=== PATIENT | female | born 1970 | race Caucasian/White ===

== ENCOUNTER → 2020-07-20 13:47 | Outpatient (BNVA) | payer OTHER, SELFPAY | PROVIDERS: PCP Counselor Addiction (Substance Use Disorder); Referring Provider Counselor Addiction (Substance Use Disorder); Visit Provider Internal Medicine | DX: R94.31 Abnormal electrocardiogram [ECG] [EKG] (principal); R06.02 Shortness of breath | CPT/HCPCS: 93005; 99202 ==

== ENCOUNTER → 2020-08-25 09:38 | Outpatient (REF) | payer OTHER, SELFPAY ==
--- NOTE | 2020-08-25 09:44 | CA_ITS ---
Transthoracic Echocardiogram Patient (Last, First, Middle): Ashlyn Power, Gender: Female Date of : 1970 Age: 50 Procedure Date: 08/25/2020 Procedure Type: Transthoracic Echocardiogram Location: OP Height: 157.48 cm Weight: 93.44 kg BSA: 1.94 m2 Heart Rate: bpm BP: 120 / 70 mmHg Director Compensation: Harrison MD: Erich Dueñas MD Symptoms: R06.02 - Shortness of breath Study Quality: Good ECG Rhythm: Sinus Conclusions: - The left ventricular systolic function is normal. The visually estimated ejection fraction is between 60-65%. - There is mild calcification of the aortic valve. - There is mild mitral annular calcification. Findings Procedure Information Contrast agent, definity, is being given per protocol without apparent complications. Left Ventricle Normal left ventricular cavity size. There is normal left ventricular wall thickness. The left ventricular systolic function is normal. The visually estimated ejection fraction is between 60-65%. There is no evidence of regional wall motion abnormalities. Diastolic function is normal for age. Right Ventricle Normal right ventricular cavity size and systolic function. Atria Both atria are normal in size. Aortic Valve There is a normal trileaflet aortic valve. There is mild calcification of the aortic valve. There is no aortic valve stenosis. There is no aortic valve regurgitation. Mitral Valve There is mild mitral annular calcification. There is trace mitral valve regurgitation. There is no mitral valve stenosis. Pulmonic Valve The pulmonic valve was not well visualized. Tricuspid Valve Normal tricuspid valve structure. There is trace tricuspid valve regurgitation. The pulmonary artery systolic pressure is normal. Great Vessels The aortic annulus, sinuses of valsalva, and asc aorta are normal in size. Venous The inferior vena cava is normal in size and collapses greater than 50% with inspiration. Pericardium/Pleural There is no evidence of pericardial effusion. Prior Study Comparison No prior study available for comparison. Measurements 2D Linear Measurements RVIDd: 2.82 RVIDd Index: 1.45 IVSd: 1.00 0.6-0.9/0.6-1.0 cm LVIDd: 5.05 3.9-5.3/4.2-5.9 cm LVIDd Index: 2.60 2.4-3.2/2.2-3.1 cm/m2 LVIDs: 3.51 2.0-3.6 cm LVPWd: 1.17 0.7-1.1 cm Ao Root: 2.90 2.1-3.5 cm LA Diam: 4.30 2.7-3.8/3.0-4.0 cm LAIDs Index: 2.22 1.5-2.3 cm/m2 LV Mass: 257.48 67-162/88-224 g LV Mass Index: 132.72 43-95/49-115 g/m2 LVOT Diam: 2.40 3.0+(-)1.3 cm 2D Systolic Function EF 4C: 58.10 >55% EF 2C: 65.80 >55% EF BiP: 63.60 >55% Mitral Valve MV Pk E: 0.89 MV PK A: 0.84 MV Decel Time: 195.00 E/A: 1.10 E'Lateral: 7.51 E'Medial: 5.87 E/E' Med: 15.20 E/E' Lat: 11.90 Aortic Valve AoV Pk Manuel: 1.32 AoV Mn Manuel: 0.94 AoV VTI: 0.26 AoV Pk Grad: 7.00 Aov Mn Grad: 4.00 SHILOH Cont.VTI: 2.37 LVOT LVOT Pk Manuel: 0.85 LVOT Mn Manuel: 0.50 LVOT VTI: 0.14 LVOT Pk Grad: 3.00 LVOT Mn Grad: 1.00 LVOT Diam: 2.40 LVOT Area: 4.52 Diastolic Function MV Pk E: 0.89 MV Pk A: 0.84 E/A: 1.10 E'Medial: 5.87 E/E' Med: 15.20 E' Laterial: 7.51 E/E' Lat: 11.90 Tricuspid Valve RA Press: 3.00 Great Vessels Aorta Ao Root-2D: 2.90 2.0-3.7 cm Ao Asc: 2.80 2.1-3.4 cm Ao Arch: 2.50 Updated in Other Vendor System with Status of Final Erich Dueñas MD electronically signed on 08/26/2020 1:29:39 PM with status of Final
== END ==
LOC: HO.CARD 09:38
PROVIDERS: Visit Provider Internal Medicine
DX: R06.02 Shortness of breath (principal)
CPT/HCPCS: 93306; Q9957

== ENCOUNTER → 2020-09-05 09:33 | Outpatient (REF) | payer OTHER, SELFPAY | LOC: HO.CARD 09:33 | PROVIDERS: PCP Internal Medicine; Visit Provider Internal Medicine | DX: Z13.89 Encounter for screening for other disorder (principal) ==

== ENCOUNTER 2020-09-05 10:12 | Inpatient (IN) | payer OTHER, SELFPAY ==
[2020-09-05] VITALS (12 sets, daily range): BP systolic 82–129; BP diastolic 32–71; PULSE 84–100; RESP 12–19; TEMP 36.5–37.1; O2SAT 94–97; BMI 35.2
--- NOTE | 2020-09-05 10:21 | XR_ITS ---
EXAMINATION: XR CHEST CLINICAL INFORMATION: Dyspnea COMPARISON: None TECHNIQUE: Portable upright AP view of the chest was obtained. FINDINGS: The lungs are clear. There is no airspace consolidation, vascular congestion, or definite groundglass opacity. The costophrenic sulci are clear. There is no pneumothorax or pleural reaction, or effusion. The heart is normal in size. The hilar and mediastinal contours and bony structures are unremarkable. XR/XR chest 1V IMPRESSION: Unremarkable examination.
--- NOTE | 2020-09-05 10:21 | ECG_ITS ---
Test Reason : HYPOTENSION Blood Pressure : / mmHG Vent. Rate : 092 BPM Atrial Rate : 092 BPM P-R Int : 182 ms QRS Dur : 102 ms QT Int : 408 ms P-R-T Axes : 020 008 010 degrees QTc Int : 504 ms Normal sinus rhythm Cannot rule out Inferior infarct , age undetermined Cannot rule out Anterior infarct , age undetermined Prolonged QT Abnormal ECG No previous ECGs available Referred By: Renetta Myers Electronically Signed By:MIESHA PRESLEY MD
--- NOTE | 2020-09-05 10:23 | ED.WEAKNESS ---
HPI - Weakness General Chief complaint: Weakness Stated complaint: HYPOTENSION Time Seen by Provider: 09/05/20 10:21 Source: patient Mode of arrival: wheelchair (from ETT lab) Limitations: no limitations History of Present Illness HPI Narrative: taking multiple psychiatric medications as well as furosemide - was going to have ETT today (reported surveillance) told staff she was lightheaded and felt confused and off for 1 week with some nasal congestion and cough/ mild dyspnea no chest pain found to have BP 70/40 had ECHO yesterday EF 60%, notes only new medication was risperidone so she stopped it. MD Complaint: generalized weakness and lack of energy Onset (ago): week(s) (1) Duration: constant Location: generalized Migration: none Severity: moderate Quality: dull Relieving factors: none Exacerbating factors: movement Context: new medication Associated symptoms: confusion and shortness of breath Related Data Home Medications Medication Instructions Recorded Confirmed aripiprazole 10 mg tablet 10 mg PO DAILY 07/20/20 07/20/20 aripiprazole 5 mg tablet 5 mg PO DAILY 07/20/20 07/20/20 buprenorphine 8 mg-naloxone 2 mg 20 mg SUBLINGUAL DAILY 07/20/20 07/20/20 sublingual film buspirone 15 mg tablet 7.5 mg PO TID tab 07/20/20 07/20/20 clonidine HCl 0.1 mg tablet 0.1 mg PO BEDTIME tab 07/20/20 07/20/20 clonidine HCl 0.2 mg tablet 0.2 mg PO BEDTIME 07/20/20 07/20/20 doxepin 50 mg capsule 50 mg PO BEDTIME 07/20/20 07/20/20 doxepin 75 mg capsule 75 mg PO DAILY cap 07/20/20 07/20/20 duloxetine 30 mg capsule,delayed 30 mg PO DAILY 07/20/20 07/20/20 release duloxetine 60 mg capsule,delayed mg PO 07/20/20 07/20/20 release fluticasone propionate 50 INTRANASAL 07/20/20 07/20/20 mcg/actuation nasal spray,suspension furosemide 20 mg tablet 20 mg PO BID tab 07/20/20 07/20/20 gabapentin 100 mg capsule 100 mg PO TID 07/20/20 07/20/20 gabapentin 400 mg capsule 400 mg PO TID 07/20/20 07/20/20 hydrochlorothiazide 50 mg tablet 25 mg PO DAILY tab 07/20/20 07/20/20 hydroxyzine HCl 50 mg tablet 50 mg PO TID tab 07/20/20 07/20/20 ibuprofen 600 mg tablet mg PO 07/20/20 07/20/20 magnesium oxide 250 mg PO DAILY 07/20/20 07/20/20 metformin 500 mg tablet 500 mg PO TID tab 07/20/20 07/20/20 polyethylene glycol 3350 17 g PO 07/20/20 07/20/20 gram/dose oral powder prazosin 2 mg capsule 2 mg PO DAILY cap 07/20/20 07/20/20 sennosides 8.6 mg-docusate sodium PO 07/20/20 07/20/20 50 mg tablet valsartan 40 mg tablet 40 mg PO BID tab 07/20/20 07/20/20 venlafaxine 100 mg tablet mg PO 07/20/20 07/20/20 Allergies Allergy/AdvReac Type Severity Reaction Status Date / Time Sulfa (Sulfonamide Allergy Unknown HIVES Verified 07/20/20 14:16 Antibiotics) metoclopramide [Reglan] AdvReac Unknown RESTLESS Verified 07/20/20 14:16 LEGS Review of Systems Review of Systems: Constitutional : No Weight loss, No Fever, No Chills, pos Fatigue, No Malaise ENT/Mouth : No sore throat, No Rhinorrhea, positive nasal congestion Eyes: No Eye Pain, No Swelling, No Redness Cardiovascular : No Chest Pain, pos SOB, No Dyspnea on Exertion, No Orthopnea, No Edema, No Palpitations Respiratory : pos Cough, No Sputum, No Wheezing Gastrointestinal : No Nausea, No Vomiting, No Diarrhea, No Constipation, No abdominal Pain, No Hematochezia, No Melena Genitourinary : No Dysuria, No Urinary Frequency, No Hematuria, Musculoskeletal : No joint pain, No Myalgias, No Joint Swelling Skin : No Skin Lesions, No rash Neuro : pos diffuse Weakness, No Numbness, pos Dizziness, No Headache Psych : No Anxiety/Panic, No Depression Heme/Lymph: No Bruising, No Bleeding,No Lymphadenopathy Endocrine : No Polyuria, No Polydipsia All other systems reviewed and are negative PMFSH Past Medical History Attestation statement: The following information was validated with the patient. Medical History (Updated 09/05/20 @ 16:20 by Renetta Myers DO) Bipolar disorder Essential hypertension QT prolongation Renal insufficiency Type 2 diabetes mellitus with unspecified complications Family History Family History (Updated 07/20/20 @ 14:18 by MONTY Castillo) Mother Angina pectoris Father S/P CABG x 3 Social History Social History (Updated 09/05/20 @ 10:42 by Renetta Myers DO) Smoking Status: Former smoker Use of substances other than those prescribed or required for medical reasons: No Advance Directives: No Advance Directives Information Provided: No Physical Exam Vital Signs: Vital Signs: Last Vital Signs Temp 97.9 F 09/05/20 10:19 Pulse 93 09/05/20 15:38 Resp 16 09/05/20 15:12 BP 115/61 09/05/20 15:38 Pulse Ox 97 09/05/20 15:12 Body Mass Index 35.2 Appearance: Alert. Oriented X3. No acute distress. Eyes: Pupils equal, round and reactive to light. ENT: Pharynx normal. nasal congestion Neck: Normal inspection. Neck supple. CVS: Normal heart rate and rhythm. Pulses normal. Respiratory: No respiratory distress. Breath sounds normal. Abdomen: Soft and non-tender. Skin: Skin warm and dry. Normal skin color. Normal skin turgor. Extremities: pos 2 to 3+ pitting lower extremity edema. No calf ttp Neuro: Oriented X 3. No motor deficit. No sensory deficit. Course Course Course Narrative: patient states she feels better but her BP remains low and she does appear somnolent will repeat fluid bolus EF 60% and give midodrine patient seems more sedate - wonder if this is med related will try low dose narcan 0.4mg to see if this improves her status zero response to narcan, repeat calls to [facility] and [facility] labs her hypotension seems related to dehydration vs medication at this time I do not suspect infection or severe sepsis attempts to call her PCP Dr. Carin Soto for her baseline labs [phone] pateint's Cr is 1.9 at baseline, planned admit at this time BUn 37 last serum test on 08/29/20 patient refuses sierra, no abdominal pain to suggest obstruction, patient admits to laying in bed due to not feeling well denies trauma, or significant physical exertion will continue fluids, has received 2.5L so far MDM - Weakness MDM Narrative Medical decision making narrative: 50 yo female with prolonged qtc, HTN, poor renal functio - here with one week of feeling confused and dizzy worse today at ETT test had BP 70/40 no new changes in medications other than risperidone which she stopped she is on multiple meds that can lead to hypotension, no GIB, no CP, mild shortness of breath, will need labs, gentle fluids, CXR, COVID swab, ddimer/troponin, dispo per results and findings, CT scan for dizziness though stroke seems unlikely Lab Data Result diagrams: 09/05/20 10:46 09/05/20 10:46 Labs: Lab Results 09/05/20 09/05/20 09/05/20 Range/Units 10:46 10:46 10:46 WBC 6.7 (4.8-10.8) X10*3/uL RBC 3.18 L (4.20-5.50) X10*6/uL Hgb 9.0 L (12.0-16.0) g/dl Hct 28.3 L (37-47) % MCV 89.0 (80-98) fL MCH 28.3 (27.0-33.0) pg MCHC 31.8 (31.0-35.0) g/dl RDW 13.2 (11.0-16.0) % Plt Count 358 (160-400) X10*3/uL MPV 9.2 L (9.4-12.3) fL Immature Gran % (Auto) 0.3 (0.0-0.4) % Neut % (Auto) 68.3 (45-73) % Lymph % (Auto) 20.0 (20-40) % [place] % (Auto) 8.0 (2-11) % Eos % (Auto) 2.6 (0-4) % Baso % (Auto) 0.8 (0-2) % Lymph # (Auto) 1.3 (1.2-4.9) X10*3/uL [place] # (Auto) 0.5 (0.1-1.2) X10*3/uL Eos # (Auto) 0.2 (0.0-0.4) X10*3/uL Baso # (Auto) 0.1 (0.0-0.2) X10*3/uL Abs Immat Gran (auto) 0.02 (0.00-0.03) X10*3/uL Absolute Neuts (auto) 4.6 (2.0-8.3) X10*3/uL Absolute Nucleated RBC 0.000 (0.0-0.012) X10*3/uL Nucleated RBC % (auto) 0.0 (0.0-0.2) /100WBC PT 10.1 L (10.8-13.0) SEC INR 0.9 (0.9-1.1) APTT 28.2 (24.1-38.0) SEC D-Dimer 671 NG/ML VBG pH (7.32-7.43) VBG pCO2 mmhg VBG pO2 mmhg VBG HCO3 mmol/L VBG O2 Saturation % VBG Base Excess mmol/L Sodium 133 L (135-145) mmol/L Potassium 3.8 (3.3-5.1) mmol/l Chloride 89 L (96-108) mmol/L Carbon Dioxide 30 H (22-29) mmol/L Anion Gap 18 (12-20) BUN 77 H (9-16) mg/dL Creatinine 3.26 H (0.5-1.4) mg/dL Estim Creat Clear Calc 22.2 Estimated GFR 15 Random Glucose 130 H (60-115) mg/dL Lactic Acid (0.5-2.0) mmol/L Calcium 9.0 (8.4-10.2) mg/dL Magnesium 1.8 (1.6-2.6) mg/dL Total Bilirubin 0.2 (0.0-1.0) mg/dL Direct Bilirubin < 0.2 (0.0-0.5) mg/dL AST 83 H (5-31) U/L ALT 42 H (0-31) U/L Alkaline Phosphatase 81 (39-117) U/L Ammonia (13-55) umol/L Total Creatine Kinase 4209 H (26-140) U/L Troponin I High Sens (<3.5-17.0) ng/L B-Natriuretic Peptide (<100) pg/mL Total Protein 6.6 (6.5-8.0) g/dL Albumin 3.9 (3.5-5.0) g/dL Lipase 9 (8-78) U/L Coronavirus (PCR) (Negative) Influenza Type A (PCR) (Negative) Influenza Type B (PCR) (Negative) RSV RNA Qual (PCR) (Negative) 09/05/20 09/05/20 09/05/20 Range/Units 10:46 10:46 15:03 WBC (4.8-10.8) X10*3/uL RBC (4.20-5.50) X10*6/uL Hgb (12.0-16.0) g/dl Hct (37-47) % MCV (80-98) fL MCH (27.0-33.0) pg MCHC (31.0-35.0) g/dl RDW (11.0-16.0) % Plt Count (160-400) X10*3/uL MPV (9.4-12.3) fL Immature Gran % (Auto) (0.0-0.4) % Neut % (Auto) (45-73) % Lymph % (Auto) (20-40) % [place] % (Auto) (2-11) % Eos % (Auto) (0-4) % Baso % (Auto) (0-2) % Lymph # (Auto) (1.2-4.9) X10*3/uL [place] # (Auto) (0.1-1.2) X10*3/uL Eos # (Auto) (0.0-0.4) X10*3/uL Baso # (Auto) (0.0-0.2) X10*3/uL Abs Immat Gran (auto) (0.00-0.03) X10*3/uL Absolute Neuts (auto) (2.0-8.3) X10*3/uL Absolute Nucleated RBC (0.0-0.012) X10*3/uL Nucleated RBC % (auto) (0.0-0.2) /100WBC PT (10.8-13.0) SEC INR (0.9-1.1) APTT (24.1-38.0) SEC D-Dimer NG/ML VBG pH (7.32-7.43) VBG pCO2 mmhg VBG pO2 mmhg VBG HCO3 mmol/L VBG O2 Saturation % VBG Base Excess mmol/L Sodium (135-145) mmol/L Potassium (3.3-5.1) mmol/l Chloride (96-108) mmol/L Carbon Dioxide (22-29) mmol/L Anion Gap (12-20) BUN (9-16) mg/dL Creatinine (0.5-1.4) mg/dL Estim Creat Clear Calc Estimated GFR Random Glucose (60-115) mg/dL Lactic Acid 1.9 (0.5-2.0) mmol/L Calcium (8.4-10.2) mg/dL Magnesium (1.6-2.6) mg/dL Total Bilirubin (0.0-1.0) mg/dL Direct Bilirubin (0.0-0.5) mg/dL AST (5-31) U/L ALT (0-31) U/L Alkaline Phosphatase (39-117) U/L Ammonia 31 (13-55) umol/L Total Creatine Kinase (26-140) U/L Troponin I High Sens 6.4 (<3.5-17.0) ng/L B-Natriuretic Peptide < 10 (<100) pg/mL Total Protein (6.5-8.0) g/dL Albumin (3.5-5.0) g/dL Lipase (8-78) U/L Coronavirus (PCR) (Negative) Influenza Type A (PCR) (Negative) Influenza Type B (PCR) (Negative) RSV RNA Qual (PCR) (Negative) 09/05/20 09/05/20 Range/Units 15:04 16:14 WBC (4.8-10.8) X10*3/uL RBC (4.20-5.50) X10*6/uL Hgb (12.0-16.0) g/dl Hct (37-47) % MCV (80-98) fL MCH (27.0-33.0) pg MCHC (31.0-35.0) g/dl RDW (11.0-16.0) % Plt Count (160-400) X10*3/uL MPV (9.4-12.3) fL Immature Gran % (Auto) (0.0-0.4) % Neut % (Auto) (45-73) % Lymph % (Auto) (20-40) % [place] % (Auto) (2-11) % Eos % (Auto) (0-4) % Baso % (Auto) (0-2) % Lymph # (Auto) (1.2-4.9) X10*3/uL [place] # (Auto) (0.1-1.2) X10*3/uL Eos # (Auto) (0.0-0.4) X10*3/uL Baso # (Auto) (0.0-0.2) X10*3/uL Abs Immat Gran (auto) (0.00-0.03) X10*3/uL Absolute Neuts (auto) (2.0-8.3) X10*3/uL Absolute Nucleated RBC (0.0-0.012) X10*3/uL Nucleated RBC % (auto) (0.0-0.2) /100WBC PT (10.8-13.0) SEC INR (0.9-1.1) APTT (24.1-38.0) SEC D-Dimer NG/ML VBG pH 7.36 (7.32-7.43) VBG pCO2 56 mmhg VBG pO2 32 mmhg VBG HCO3 31 mmol/L VBG O2 Saturation 50.1 % VBG Base Excess 4.4 mmol/L Sodium (135-145) mmol/L Potassium (3.3-5.1) mmol/l Chloride (96-108) mmol/L Carbon Dioxide (22-29) mmol/L Anion Gap (12-20) BUN (9-16) mg/dL Creatinine (0.5-1.4) mg/dL Estim Creat Clear Calc Estimated GFR Random Glucose (60-115) mg/dL Lactic Acid (0.5-2.0) mmol/L Calcium (8.4-10.2) mg/dL Magnesium (1.6-2.6) mg/dL Total Bilirubin (0.0-1.0) mg/dL Direct Bilirubin (0.0-0.5) mg/dL AST (5-31) U/L ALT (0-31) U/L Alkaline Phosphatase (39-117) U/L Ammonia (13-55) umol/L Total Creatine Kinase (26-140) U/L Troponin I High Sens (<3.5-17.0) ng/L B-Natriuretic Peptide (<100) pg/mL Total Protein (6.5-8.0) g/dL Albumin (3.5-5.0) g/dL Lipase (8-78) U/L Coronavirus (PCR) NEGATIVE (Negative) Influenza Type A (PCR) NEGATIVE (Negative) Influenza Type B (PCR) NEGATIVE (Negative) RSV RNA Qual (PCR) NEGATIVE (Negative) ECG Data Attestation: I personally reviewed and interpreted this ECG as follows: ECG interpretation date: 09/05/20 ECG interpretation time: 10:37 Interpretation: Rate: 92 Rhythm: NSR [place]: normal Normal P waves. Normal ERICA. Normal QRS complex. poor R wave progression ST T wave : nonspecific no LEONARDO qTC: prolonged prior studies: no acute ischemia The study has been interpreted contemporaneously by me. . Critical Care Time Critical Care Time Critical Care Time: Yes Total Critical Care Time: 60 Attestation: 2.5L NS, labs, EKG, admission I attest to this time spent taking care of the patient Discharge Plan Discharge Clinical Impression: Renal failure Qualifiers: Renal failure chronicity: acute on chronic Acute renal failure type: unspecified Chronic kidney disease stage: unspecified stage Qualified Code(s): N17.9 - Acute kidney failure, unspecified Hypotension Qualifiers: Hypotension type: hypotension due to drug Qualified Code(s): I95.2 - Hypotension due to drugs Rhabdomyolysis Qualifiers: Rhabdomyolysis type: non-traumatic Qualified Code(s): M62.82 - Rhabdomyolysis Patient Disposition: Admitted As Inpatient
--- NOTE | 2020-09-05 10:36 | CT_ITS ---
CT HEAD WITHOUT CONTRAST CLINICAL INFORMATION: Dizziness and confusion for one week. COMPARISON: None available. TECHNIQUE: Contiguous axial imaging was performed from the skull base to vertex without intravenous administration of contrast. This CT examination was performed using dose optimization techniques as appropriate, variously including the following: *Automated exposure control *Adjustment of mA and/or kV according to patient size (this includes techniques or standardized protocols for targeted exams where dose is matched to indication/reason for exam; i.e. extremities or head) *Use of iterative reconstruction technique FINDINGS: There is no intracranial hemorrhage, hydrocephalus, extra-axial surface collection, midline shift, or other herniation pattern. Danielle to white matter differentiation is diffusely maintained without evidence of an evolved acute territorial infarct. The basilar cisterns are preserved. No significant soft tissue abnormality. No acute osseous abnormality. There is mild mucosal thickening within the right sphenoid sinus. Remaining paranasal sinuses and the mastoid air cells are clear. CT/CT head/brain wo con IMPRESSION: No acute intracranial abnormality.
[2020-09-05] MEDS: 0.9 % Sodium Chloride 500 ML IV (10:51)
[2020-09-05 10:52] LABS: Basophils Absolute Auto 0.1 X10*3/uL (0.0-0.2); Basophils Percent Auto 0.8 % (0-2); Eosinophils Absolute Auto 0.2 X10*3/uL (0.0-0.4); Eosinophils Percent Auto 2.6 % (0-4); Hematocrit 28.3 % (37-47); Imm Gran Abs Auto 0.02 X10*3/uL (0.00-0.03); Imm Gran Pct Auto 0.3 % (0.0-0.4); Lymphocytes Absolute Auto 1.3 X10*3/uL (1.2-4.9); MANUAL DIFF FLAG NO; Mean Corpuscular HGB Conc 31.8 g/dl (31.0-35.0); Mean Corpuscular Hemoglobin 28.3 pg (27.0-33.0); Mean Platelet Volume 9.2 fL (9.4-12.3); Monocytes Absolute Auto 0.5 X10*3/uL (0.1-1.2); Neutrophils Absolute Auto 4.6 X10*3/uL (2.0-8.3); Neutrophils Percent Auto 68.3 % (45-73); Platelet Count 358 X10*3/uL (160-400); Red Blood Count 3.18 X10*6/uL (4.20-5.50); Red Cell Distribution Width 13.2 % (11.0-16.0); White Blood Count 6.7 X10*3/uL (4.8-10.8)
[2020-09-05 11:00] LABS: INTERNATIONAL NORM RATIO 0.9 (0.9-1.1); Prothrombin Time 10.1 SEC (10.8-13.0)
[2020-09-05 11:03] LABS: D Dimer 671 NG/ML; Partial Thromboplastin Time 28.2 SEC (24.1-38.0)
[2020-09-05 11:23] LABS: Lactic Acid 1.9 mmol/L (0.5-2.0)
[2020-09-05 11:33] LABS: Alanine Aminotransferase 42 U/L (0-31); Albumin Level 3.9 g/dL (3.5-5.0); Alkaline Phosphatase 81 U/L (39-117); Anion Gap 18 (12-20); Aspartate Amino Transferase 83 U/L (5-31); Bilirubin Direct < 0.2 mg/dL (0.0-0.5); Bilirubin Total 0.2 mg/dL (0.0-1.0); Blood Urea Nitrogen 77 mg/dL (9-16); Carbon Dioxide 30 mmol/L (22-29); Chloride 89 mmol/L (96-108); Creatinine Clr Calc Pharmacy 22.2; Estimated Glomerular Filt Rate 15; Glucose Random 130 mg/dL (60-115); Lipase 9 U/L (8-78); Magnesium 1.8 mg/dL (1.6-2.6); Potassium 3.8 mmol/l (3.3-5.1); Sodium 133 mmol/L (135-145); Total Protein 6.6 g/dL (6.5-8.0)
[2020-09-05 11:34] LABS: B Type Natriuretic Peptide < 10 pg/mL (<100); Troponin-I High Sensitivity 6.4 ng/L (<3.5-17.0)
--- NOTE | 2020-09-05 12:07 | NM_ITS ---
EXAMINATION: PULMONARY PERFUSION STUDY CLINICAL INFORMATION: Shortness of breath, elevated d-dimer COMPARISON: No previous lung scan is available for comparison. A radiograph the chest dated 09/05/2020 is available for comparison. TECHNIQUE: Following the intravenous injection of 4.0 mCi Tc-99m MAA, an 8-view perfusion study was performed using a gamma scintillation camera. FINDINGS: No segmental perfusion defects are present. There is homogeneous distribution of activity bilaterally. There are no focal anatomic appearing perfusion defects present. NM/NM pul perfusion IMPRESSION: Normal radionuclide lung perfusion scan.
[2020-09-05] MEDS: 0.9 % Sodium Chloride 1,000 ML 999 ML IVCONT ×2 (13:57→15:13)
[2020-09-05] MEDS: Midodrine HCl 5 MG TABLET PO (13:57)
[2020-09-05] MEDS: Naloxone HCl 0.4 MG/ML VIAL IVPUSH (14:12)
--- NOTE | 2020-09-05 15:16 | PC.NURSE ---
medicated further per emar, asking for something to eat, provider agreeable. given sandwich.
[2020-09-05 15:26] LABS: Ammonia 31 umol/L (13-55)
--- NOTE | 2020-09-05 15:38 | PC.NURSE ---
did not eat much of sandwich, pt taken to nuc med.
[2020-09-05 15:52] LABS: Influenza A PCR NEGATIVE (Negative); Influenza B PCR NEGATIVE (Negative); Resp Syncy Virus RNA Qual PCR NEGATIVE (Negative); SARS COV2 PCR INHOUSE NEGATIVE (Negative)
[2020-09-05 16:24] LABS: Base Excess VBG 4.4 mmol/L; HCO3 VBG 31 mmol/L; PCO2 VBG 56 mmhg; PO2 VBG 32 mmhg; pH VBG 7.36 (7.32-7.43)
[2020-09-05 16:25] LABS: Blood Gas Serial # 5414; Oxygen Saturation VBG 50.1 %
[2020-09-05 17:06] LABS: Glucose Urine UA NEG (NEG); Leukocyte Esterase Urine 2+ (NEG); Nitrite Urine NEG (NEG); Urine Blood TRACE (NEG); Urine Ketones NEG (NEG); Urine Protein NEG (NEG-TRACE)
[2020-09-05 17:08] LABS: Appearance Urine CLEAR; Color Urine YELLOW
[2020-09-05 17:17] LABS: Bacteria Urine 1+ /LPF; RBC Urine 0-2 /HPF (0); Squamous Epithelial Cell Urine 2+ /LPF
[2020-09-05 17:31] LABS: Amphetamine Screen Urine Not Detected (Not Detect); Barbiturates, Urine Not Detected (Not Detect); Benzodiazepines Screen Urine Not Detected (Not Detect); Cannabinoid Screen Urine Not Detected (Not Detect); Cocaine Screen Urine Not Detected (Not Detect); Opiate Screen Urine Not Detected (Not Detect); Phencyclidine Screen Urine Not Detected (Not Detect)
--- NOTE | 2020-09-05 17:31 | PC.NURSE ---
pt continues to be intermittenly resting in stretcher, easily alert to verbal stimuli. awaiting hospitalist consultation.
--- NOTE | 2020-09-05 19:33 | PM.EVENT ---
Event Note Date of Service: 09/06/20 Event Note: Patient is a poor historian as per the patient patient was recently was in cardiology office for QTC prolongation where she was adjusted to get her medication adjusted psych hopper. She says that from last 1-2 weeks year her pop appetite was declining as well as she was having some worsening kidney function from last 2 months as per her brother she went to her doctor and was referred for nephrology which she was supposed to go on 15 of September but before that she was becoming more lead more drowsy and weak, less mobile , mostly lying in the bed. and that is why came to the hospital In the hospital patient was found creatinine of 2.23 a in comparison to September where her creatinine was 1.34 Also was found to have CPK of 4000 QTC during this admission T504 range Patient denies any chest pain or shortness of breath or abdominal pain or any nausea or vomiting or diarrhea other only complaint patient endorsed is sometimes she has difficulty urinating but could not able to elaborate it denies any other urinary complaint including burning or pain or any fever Physical exam: Cvs: rrr, [id number] , no murmur res: clear to auscultation ,no rhonchii or wheezing abd: no rebound or guarding ,nt, bs present. ext pulses present , no cyanosis neuro: axo3 , nonfocal. Assessment and plan: DONI/rhabdo: Probably related to above dehydration and immobility: No fever or any rigidity or any abdominal pain UA abnormal-will add ceftriaxone Nephrology evaluation in the morning Hold diuretics and nephrotoxic medications She is on multiple psych medications not yet reconciled-ED was called again to reconcile the medications, then we will plan to continue accordingly because there multiple medications . U tox and renal ultrasound with bladder since patient has DONI.
--- NOTE | 2020-09-05 20:02 | PC.NURSE ---
Pt refused/declined catheter, explained reasoning, pt expressed understanding, continues to decline.
[2020-09-05 21:52] LABS: Glucose, Whole Blood 89 mg/dL (60-115)
[2020-09-05] MEDS: 0.9 % Sodium Chloride 1,000 ML 100 ML IVCONT (22:15)
[2020-09-05] MEDS: 0.9 % Sodium Chloride Flush 3 ML SYRINGE IVFLUSH (22:16)
[2020-09-05] MEDS: cefTRIAXone sodium 1 GM in 0.9 % Sodium Chloride 50 ML IV (22:16)
[2020-09-06 04:00] VITALS: BP 102/57; PULSE 80; RESP 18; TEMP 37; O2SAT 92
--- NOTE | 2020-09-06 06:00 | ECG_ITS ---
Test Reason : CHECK QTC Blood Pressure : / mmHG Vent. Rate : 088 BPM Atrial Rate : 088 BPM P-R Int : 200 ms QRS Dur : 104 ms QT Int : 418 ms P-R-T Axes : 031 015 025 degrees QTc Int : 505 ms Normal sinus rhythm Cannot rule out Anterior infarct (cited on or before 05-SEP-2020) Prolonged QT Abnormal ECG When compared with ECG of 05-SEP-2020 10:31, No significant change was found Referred By: Anila Duncan Electronically Signed By:MIESHA PRESLEY MD
[2020-09-06 06:54] LABS: Hematocrit 27.1 % (37-47); Hemoglobin 8.4 g/dl (12.0-16.0); Mean Corpuscular Hemoglobin 28.3 pg (27.0-33.0); Mean Corpuscular Volume 91.2 fL (80-98); Mean Platelet Volume 9.5 fL (9.4-12.3); Platelet Count 331 X10*3/uL (160-400); Red Blood Count 2.97 X10*6/uL (4.20-5.50); Red Cell Distribution Width 13.3 % (11.0-16.0); White Blood Count 5.2 X10*3/uL (4.8-10.8)
[2020-09-06 07:14] LABS: Anion Gap 12 (12-20); Blood Urea Nitrogen 56 mg/dL (9-16); Carbon Dioxide 30 mmol/L (22-29); Chloride 102 mmol/L (96-108); Creatinine Clr Calc Pharmacy 41.7; Estimated Glomerular Filt Rate 31; Glucose Random 108 mg/dL (60-115); Potassium 3.5 mmol/l (3.3-5.1); Sodium 140 mmol/L (135-145)
[2020-09-06] MEDS: 0.9 % Sodium Chloride 1,000 ML 100 ML IVCONT ×2 (07:47→17:53)
[2020-09-06] MEDS: Acetaminophen 325 MG TABLET 650 MG PO (07:53)
[2020-09-06 08:00] VITALS: BP 119/73; PULSE 98; RESP 18; TEMP 37.1; O2SAT 93
[2020-09-06 08:18] LABS: Glucose, Whole Blood 132 mg/dL (60-115)
--- NOTE | 2020-09-06 09:18 | P.PNIM_ITS ---
Subjective Subjective Date of Service: 09/08/20 Interval History: doni, rhabdo Review of Systems Seems like improving, denies any chest pain or shortness of breath or abdominal pain or fever chills Physical Exam Vital Signs: Vital Signs: Last Vital Signs Temp 98.7 F 09/06/20 08:00 Pulse 98 09/06/20 08:00 Resp 18 09/06/20 08:00 BP 119/73 09/06/20 08:00 Pulse Ox 93 09/06/20 08:00 Body Mass Index 35.2 Physical exam: Cvs: rrr, [id number] , no murmur res: clear to auscultation ,no rhonchii or wheezing abd: no rebound or guarding ,nt, bs present. ext pulses present , no cyanosis neuro: axo3 , nonfocal. Objective Data Current Medications Generic Name Dose Route Start Last Admin Trade Name Freq PRN Reason Stop Dose Admin Acetaminophen 650 mg 09/05/20 21:22 09/06/20 07:53 Acetaminophen 325 Mg Tablet PO 650 mg Q6H PRN Administration Pain, Mild (Pain Scale 1-3) Ceftriaxone Sodium 1 gm/ 50 mls @ 100 mls/hr 09/05/20 22:00 09/05/20 23:07 Sodium Chloride IV Infused Q24H SIN Infusion Sodium Chloride 1,000 mls @ 100 mls/hr 09/05/20 21:22 09/06/20 07:47 Ns IVCONT 100 mls/hr .Q10H SIN Administration Insulin Human Lispro 0 unit 09/05/20 21:22 09/06/20 07:49 Insulin Lispro 100 Unit/Ml 3 Ml Vial SUBCUT Not Given QIDACHS [facility] Protocol Ondansetron HCl 4 mg 09/05/20 21:22 Ondansetron Hcl 4 Mg/2 Ml Vial IVPUSH Q8H PRN Nausea and Vomiting Pharmacy Consult 1 each 09/05/20 19:40 Consult Rx Perform Med Rec MISCELLANE ONCE PRN Consult order Pharmacy Consult 1 each 09/05/20 21:22 Consult Rx Perform Med Rec MISCELLANE ONCE PRN Consult order Sodium Chloride 3 ml 09/06/20 00:00 09/06/20 07:50 0.9 % Sodium Chloride Flush 3 Ml Syringe [facility]USH [facility] CBC & Chem 7: 09/06/20 05:28 09/07/20 05:43 Assessment and Plan (1) Renal failure: Status: Acute Assessment and Plan: 50-year-old woman who is being admitted with acute kidney injury and chronic kidney disease, rhabdomyolysis, urinary tract infection and some hypotension. She has a history of prolonged QT and more recently her psych medications have been adjusted. Some of her symptoms may be from this. She has had declining appetite and more of a sleepy affect. It also appears that she has had worsening renal function over the last several months and she was referred to see a solar resource assessor. 1. Acute kidney injury on chronic kidney disease, multifactorial likely related to dehydration, hypotension, rhabdomyolysis, and urinary tract infection. We will continue IV fluids, Nephrology to follow. Hold any nephrotoxic agents. 2. Rhabdomyolysis. Likely from increased immobility due to lethargy. Continue IV fluids, follow CK-MB, follow total CpK. Seen by Nephro-DONI was thought to be related to probably hypoperfusion dehydration. 4. Prolonged QTc. : Seen by psych Abilify adjusted 10 mg daily Also doxepin adjusted as per psych Will continue to monitor 5. Urinary tract infection. Rocephin, follow urine cultures. 6. Diabetes mellitus. Sliding scale, ADA diet. 7. Deep vein thrombosis prophylaxis with heparin.
[2020-09-06 10:58] LABS: Iron 47 mcg/dL (30-160); Percent Iron Saturation 19 % (15-50); Total Iron Binding Capacity 244 mcg/dL (228-428); Unsaturated Iron Binding 197 ug/dL
[2020-09-06 11:18] LABS: Ferritin 122 ng/mL (10-250)
[2020-09-06 11:18] LABS: Glucose, Whole Blood 167 mg/dL (60-115)
[2020-09-06 11:33] VITALS: BP 117/56; PULSE 86; RESP 18; TEMP 36.8; O2SAT 95
[2020-09-06 11:48] LABS: Folate 9.2 ng/mL (> or = 4.0); Vitamin B12 256 pg/mL (200-900)
--- NOTE | 2020-09-06 12:06 | HP_ITS ---
DATE OF SERVICE: 09/05/2020 Primary care provider is not listed. CHIEF COMPLAINT: Lethargy. HISTORY OF PRESENT ILLNESS: A 50-year-old woman presenting from a [place] [facility] with lightheadedness, confusion, and lethargy. She was also noted to have low blood pressures. She had an echocardiogram yesterday, which showed an EF of 60%. She was scheduled to have an exercise stress test today, but she was unable to. She was having this cardiac workup due to an increased QTc, unlikely related to her multiple psychiatric medications. She recently had these medications decreased due to this, and since then, she reports that she has had more lethargy and has been not as active. She also reported a poor appetite and feeling more tired as of lately. She also reported that she has been having some workup regarding her kidneys, which have been worsening over some months now. She seems quite vague, answering some questions and frustrated at times as well saying that she was finding it hard to remember certain things. She denied fever, chills, nausea, vomiting, diarrhea, or chest pain. In the ER, her CK was noted to be elevated at 4209, AST 83, ALT 42, ammonia 31, troponin 6.4, creatinine 3.26, sodium 133. She also had normal blood gas. Urinalysis showed 2+ leukocyte esterase and 1+ bacteria. Urine opiates not detected, negative coronavirus. She was noted to be quite hypotensive with lowest reading of 83/44. She did receive a dose of midodrine while in the ER with 2.5 L of IV fluids. She was awake and alert during the interview. She will be admitted for further management and treatment of DONI, rhabdomyolysis, and hypotension. PAST MEDICAL HISTORY: 1. Probable chronic renal failure. 2. History of substance abuse including pain medication, currently on Suboxone. 3. Hypertension. 4. Bipolar disorder. 5. Diabetes mellitus. FAMILY HISTORY: Father had CABG x3 and NV. SOCIAL HISTORY: Patient denies any alcohol, tobacco, illicit drug use. Says that she has been sober over the last 2 years, currently lives in a sober living house. ALLERGIES: ALLERGIES TO SULFA AND REGLAN. MEDICATIONS: Medication reconciliation is pending. However, her medication list shows: 1. Albuterol inhaler 2 puffs q.6 hours as needed for wheezing. 2. Amlodipine besylate 5 mg p.o. daily. 3. Aripiprazole 10 mg. 4. Atorvastatin 20 mg at bedtime. 5. Benztropine 1 mg daily. 6. Bupropion 300 mg and 150 mg. 7. Buspirone 15 mg. 8. Buspirone 5 mg. 9. Buspirone 7.5 mg. 10. Clonidine 0.1 mg. 11. Doxepin unknown dose. REVIEW OF SYSTEMS: CONSTITUTIONAL: Denies recent fever, chills, or decrease in appetite. RESPIRATORY: Denies any shortness of breath, cough, or sputum production. CARDIOVASCULAR: Denies any chest pain, orthopnea, PND, edema. GASTROINTESTINAL: Denies any dysphagia, abdominal pain, nausea, vomiting, or diarrhea. GENITOURINARY: Denies any dysuria, frequency, or hematuria. MUSCULOSKELETAL: Denies any joint pain or swelling. NEUROPSYCH: Denies any weakness, seizures. All other systems are reviewed and are negative. PHYSICAL EXAMINATION: CONSTITUTIONAL: Resting in bed. No acute distress. VITAL SIGNS: Heart rate 92, blood pressure 93/51, oxygen saturation 97% on room air. SKIN: Intact without rash or open sores. HEENT: Head is normocephalic, atraumatic. Eyes, pupils are PERRLA. Sclerae anicteric. Mucous membranes are intact and moist. NECK: Supple. No lymphadenopathy. No JVD noted. CHEST: Clear to auscultation without wheezes, rhonchi, or rales. HEART: Regular rate and rhythm. Clear S1, S2. No murmurs, rubs, gallops. ABDOMEN: Positive bowel sounds. Soft, nontender. No hepatomegaly or splenomegaly noted. NEURO: The patient is alert and oriented x3. Cranial nerves II through XII grossly intact without focal deficits. LABORATORY DATA: WBC 6.7, hemoglobin 9.0, hematocrit 28.3, and platelets 358. Sodium is 133, potassium 3.8, chloride is 89, BUN is 77, creatinine is 3.26. CPK is 4209. Urinalysis likely positive for infection. VQ scan showed normal, no probability of PE. Head CT was also obtained, which was negative for any acute intracranial abnormality. Chest x-ray was negative for any consolidation or effusion. ASSESSMENT AND PLAN: A 50-year-old woman who is being admitted with acute kidney injury and chronic kidney disease, rhabdomyolysis, urinary tract infection and some hypotension. She has a history of prolonged QT and more recently her psych medications have been adjusted. Some of her symptoms may be from this. She has had declining appetite and more of a sleepy affect. It also appears that she has had worsening renal function over the last several months and she was referred to see a emergency room tech. 1. Acute kidney injury on chronic kidney disease, multifactorial likely related to dehydration, hypotension, rhabdomyolysis, and urinary tract infection. We will continue IV fluids, Nephrology to follow. Hold any nephrotoxic agents. 2. Rhabdomyolysis. Likely from increased immobility due to lethargy. Continue IV fluids, follow CK-MB, follow total CK. 3. Hypotension. She did receive some IV fluids in the ER. We will hold any antihypertensive medications. Continue IV fluids, may be contributing to some of her acute kidney due to hypoperfusion. Nephrology to follow. 4. Prolonged QTc. Seems likely related to her psych medication. We will consult Psych for assistance with her medications. 5. Urinary tract infection. Rocephin, follow urine cultures. 6. Diabetes mellitus. Sliding scale, ADA diet. 7. Deep vein thrombosis prophylaxis with heparin. 8. Case discussed with Dr. Streeter. 9. Full code. KATT Panchal MD JR/KRYSTLE / [id number] MTDD
--- NOTE | 2020-09-06 12:08 | MHC.CM.PN ---
CM met with patient at the bedside who reports she is independent and lives alone. Patient states her father Elvin is HCP [phone], copy requested. Discussed discharge plan, home no services. Brother will provide transport. CM will continue to follow patient for discharge needs.
[2020-09-06] MEDS: Gabapentin 100 MG CAPSULE PO ×2 (14:24→22:09)
[2020-09-06] MEDS: busPIRone HCl 5 MG TABLET 2.5 MG PO ×2 (14:24→22:08)
[2020-09-06] MEDS: Buprenorphine/Naloxone 8/2 mg FILM 2 FILM SUBLINGUAL (14:24)
[2020-09-06 15:05] VITALS: BMI 35.2
--- NOTE | 2020-09-06 15:52 | PM.PNNEP ---
Subjective Subjective Date of Service: 09/06/20 Interval history: Patient seen and examined consult dictated Physical Exam Vital Signs: Vital Signs: Last Vital Signs Temp 98.3 F 09/06/20 11:33 Pulse 86 09/06/20 11:33 Resp 18 09/06/20 11:33 BP 117/56 L 09/06/20 11:33 Pulse Ox 95 09/06/20 11:33 Body Mass Index 35.2 Objective Data Labs CBC & Chem 7: 09/06/20 05:28 09/06/20 05:28 Labs: Laboratory Results - last 24 hr 09/05/20 09/05/20 09/05/20 10:46 15:04 16:14 WBC RBC Hgb Hct MCV MCH MCHC RDW Plt Count MPV Immature Gran % (Auto) Neut % (Auto) Lymph % (Auto) Rooks % (Auto) Eos % (Auto) Baso % (Auto) Lymph # (Auto) [place]ooks # (Auto) Eos # (Auto) Baso # (Auto) Abs Immat Gran (auto) Absolute Neuts (auto) Absolute Nucleated RBC Nucleated RBC % (auto) VBG pH 7.36 VBG pCO2 56 VBG pO2 32 VBG HCO3 31 VBG O2 Saturation 50.1 VBG Base Excess 4.4 Sodium Potassium Chloride Carbon Dioxide Anion Gap BUN Creatinine Estim Creat Clear Calc Estimated GFR POC Glucose Random Glucose Calcium Iron TIBC % Saturation Unsat Iron Binding Ferritin Total Creatine Kinase 4209 H Vitamin B12 Folate Urine Color Urine Appearance Urine pH Ur Specific [place] Urine Protein Urine Glucose (UA) Urine Ketones Urine Blood Urine Nitrite Ur Leukocyte Esterase Urine RBC Urine WBC Ur Squamous Epith Cells Urine Bacteria Urine Opiates Screen Ur Barbiturates Screen Ur Phencyclidine Scrn Ur Amphetamines Screen U Benzodiazepines Scrn Urine Cocaine Screen U Marijuana (THC) Screen Coronavirus (PCR) NEGATIVE Influenza Type A (PCR) NEGATIVE Influenza Type B (PCR) NEGATIVE RSV RNA Qual (PCR) NEGATIVE 09/05/20 09/05/20 09/05/20 16:56 16:56 21:48 WBC RBC Hgb Hct MCV MCH MCHC RDW Plt Count MPV Immature Gran % (Auto) Neut % (Auto) Lymph % (Auto) [place] % (Auto) Eos % (Auto) Baso % (Auto) Lymph # (Auto) [place]ooks # (Auto) Eos # (Auto) Baso # (Auto) Abs Immat Gran (auto) Absolute Neuts (auto) Absolute Nucleated RBC Nucleated RBC % (auto) VBG pH VBG pCO2 VBG pO2 VBG HCO3 VBG O2 Saturation VBG Base Excess Sodium Potassium Chloride Carbon Dioxide Anion Gap BUN Creatinine Estim Creat Clear Calc Estimated GFR POC Glucose 89 Random Glucose Calcium Iron TIBC % Saturation Unsat Iron Binding Ferritin Total Creatine Kinase Vitamin B12 Folate Urine Color YELLOW Urine Appearance CLEAR Urine pH 7.0 Ur Specific [place] 1.010 Urine Protein NEG Urine Glucose (UA) NEG Urine Ketones NEG Urine Blood TRACE Urine Nitrite NEG Ur Leukocyte Esterase 2+ H Urine RBC 0-2 Urine WBC 10-14 H Ur Squamous Epith Cells 2+ Urine Bacteria 1+ Urine Opiates Screen Not Detected Ur Barbiturates Screen Not Detected Ur Phencyclidine Scrn Not Detected Ur Amphetamines Screen Not Detected U Benzodiazepines Scrn Not Detected Urine Cocaine Screen Not Detected U Marijuana (THC) Screen Not Detected Coronavirus (PCR) Influenza Type A (PCR) Influenza Type B (PCR) RSV RNA Qual (PCR) 09/06/20 09/06/20 09/06/20 05:28 05:28 05:28 WBC 5.2 RBC 2.97 L Hgb 8.4 L Hct 27.1 L MCV 91.2 MCH 28.3 MCHC 31.0 RDW 13.3 Plt Count 331 MPV 9.5 Immature Gran % (Auto) Cancelled Neut % (Auto) Cancelled Lymph % (Auto) Cancelled Rooks % (Auto) Cancelled Eos % (Auto) Cancelled Baso % (Auto) Cancelled Lymph # (Auto) Cancelled [place] # (Auto) Cancelled Eos # (Auto) Cancelled Baso # (Auto) Cancelled Abs Immat Gran (auto) Cancelled Absolute Neuts (auto) Cancelled Absolute Nucleated RBC 0.000 Nucleated RBC % (auto) 0.0 VBG pH VBG pCO2 VBG pO2 VBG HCO3 VBG O2 Saturation VBG Base Excess Sodium 140 Potassium 3.5 Chloride 102 Carbon Dioxide 30 H Anion Gap 12 BUN 56 H Creatinine 1.74 H Estim Creat Clear Calc 41.7 Estimated GFR 31 POC Glucose Random Glucose 108 Calcium 8.0 L D Iron 47 TIBC 244 % Saturation 19 Unsat Iron Binding 197 Ferritin 122 Total Creatine Kinase 1603 H D Vitamin B12 256 Folate 9.2 Urine Color Urine Appearance Urine pH Ur Specific [place] Urine Protein Urine Glucose (UA) Urine Ketones Urine Blood Urine Nitrite Ur Leukocyte Esterase Urine RBC Urine WBC Ur Squamous Epith Cells Urine Bacteria Urine Opiates Screen Ur Barbiturates Screen Ur Phencyclidine Scrn Ur Amphetamines Screen U Benzodiazepines Scrn Urine Cocaine Screen U Marijuana (THC) Screen Coronavirus (PCR) Influenza Type A (PCR) Influenza Type B (PCR) RSV RNA Qual (PCR) 09/06/20 09/06/20 08:09 10:58 WBC RBC Hgb Hct MCV MCH MCHC RDW Plt Count MPV Immature Gran % (Auto) Neut % (Auto) Lymph % (Auto) [place] % (Auto) Eos % (Auto) Baso % (Auto) Lymph # (Auto) [place] # (Auto) Eos # (Auto) Baso # (Auto) Abs Immat Gran (auto) Absolute Neuts (auto) Absolute Nucleated RBC Nucleated RBC % (auto) VBG pH VBG pCO2 VBG pO2 VBG HCO3 VBG O2 Saturation VBG Base Excess Sodium Potassium Chloride Carbon Dioxide Anion Gap BUN Creatinine Estim Creat Clear Calc Estimated GFR POC Glucose 132 H 167 H Random Glucose Calcium Iron TIBC % Saturation Unsat Iron Binding Ferritin Total Creatine Kinase Vitamin B12 Folate Urine Color Urine Appearance Urine pH Ur Specific [place] Urine Protein Urine Glucose (UA) Urine Ketones Urine Blood Urine Nitrite Ur Leukocyte Esterase Urine RBC Urine WBC Ur Squamous Epith Cells Urine Bacteria Urine Opiates Screen Ur Barbiturates Screen Ur Phencyclidine Scrn Ur Amphetamines Screen U Benzodiazepines Scrn Urine Cocaine Screen U Marijuana (THC) Screen Coronavirus (PCR) Influenza Type A (PCR) Influenza Type B (PCR) RSV RNA Qual (PCR) Assessment & Plan Assessment and plan (1) DONI (acute kidney injury): Status: Acute (2) Rhabdomyolysis: Status: Acute Assessment and Plan: DONI due to renal hypo perfusion and component of heme pigment nephrotoxicity hypotensive earlier urine sediment and lack of proteinuria not consistent with glomerular etiology unknown whether she has underlying CKD REC continue IVF follow cpk follow kidney function and elecrolytes Thank you Time Spent With Patient Time: Total time spent is greater than 50% in coordination of care (as documented) at patient's floor/unit and/or counseling patient:
[2020-09-06 16:00] VITALS: BP 120/58; PULSE 91; RESP 20; TEMP 36.6; O2SAT 95
--- NOTE | 2020-09-06 16:01 | PM.PSYCN ---
History of Present Illness Date of Service: 09/06/2020 Chief Complaint: Doni, rhabdo Reason for Consult: QT prolongation and psychiatric medication recommendations Requesting physician: Eugene Streeter Discussed with referring provider: Yes Sources of Information: patient interviewed and chart reviewed HPI Narrative: Patient is a 50 year old female with history of MDD and PTSD, currently medically admitted with DONI, rhabdo and recently found to have QT prolongation. Consult requested as patient on several psychiatric medicaitons, some of which may be contributing to QT. Patient seen in room 485. Awake, alert, pleasant and engaged in interview. Reports she is seen by Kristen Florian at [facility] psychiatry--last appt was a week or two ago. She states that they had started to decrease her Doxepin. Discussed other medications and psychiatric stability. She reports she has been on medications for quite sometime and feels that she has been stable. She was concerned about receiving her medications, including her suboxone which she had not received at time of interview. Patient aware of concerns regarding possibility of medications contributing to clinical issues as she was recently seen by cardiology and this was addressed. This morning QTc was 505 Discussed decreasing abilify from 15mg QD to 10mg QD and further decreasing doxepin from 75mg daytime dose to 50mgl--she reports this medication was in process of being tapered by outpatient provider as well. Review of Systems Constitutional: Reports as per [facility] Medical History (Updated 09/06/20 @ 16:21 by Martine Salazar CNP) Bipolar disorder Essential hypertension QT prolongation Renal insufficiency Type 2 diabetes mellitus with unspecified complications Diagnostics Vital Signs (24Hr): Vital Signs - 24 hr 09/05/20 18:40 09/05/20 19:59 09/05/20 20:55 Temperature Pulse Rate 92 88 88 Respiratory Rate 16 Blood Pressure 93/51 L 102/32 L 103/58 L Pulse Oximetry 94 96 09/05/20 21:14 09/05/20 23:48 09/06/20 04:00 Temperature 97.7 F 98.8 F 98.6 F Pulse Rate 96 86 80 Respiratory Rate 19 18 18 Blood Pressure 129/62 109/56 L 102/57 L Pulse Oximetry 95 96 92 09/06/20 08:00 09/06/20 11:33 Temperature 98.7 F 98.3 F Pulse Rate 98 86 Respiratory Rate 18 18 Blood Pressure 119/73 117/56 L Pulse Oximetry 93 95 Body Mass Index 35.2 Labs Results: 09/06/20 05:28 09/06/20 05:28 Labs: Laboratory Results - last 48 hr 09/05/20 09/05/20 09/05/20 10:46 10:46 10:46 WBC 6.7 RBC 3.18 L Hgb 9.0 L Hct 28.3 L MCV 89.0 MCH 28.3 MCHC 31.8 RDW 13.2 Plt Count 358 MPV 9.2 L Immature Gran % (Auto) 0.3 Neut % (Auto) 68.3 Lymph % (Auto) 20.0 Dawson % (Auto) 8.0 Eos % (Auto) 2.6 Baso % (Auto) 0.8 Lymph # (Auto) 1.3 Dawson # (Auto) 0.5 Eos # (Auto) 0.2 Baso # (Auto) 0.1 Abs Immat Gran (auto) 0.02 Absolute Neuts (auto) 4.6 Absolute Nucleated RBC 0.000 Nucleated RBC % (auto) 0.0 PT 10.1 L INR 0.9 APTT 28.2 D-Dimer 671 VBG pH VBG pCO2 VBG pO2 VBG HCO3 VBG O2 Saturation VBG Base Excess Sodium 133 L Potassium 3.8 Chloride 89 L Carbon Dioxide 30 H Anion Gap 18 BUN 77 H Creatinine 3.26 H Estim Creat Clear Calc 22.2 Estimated GFR 15 POC Glucose Random Glucose 130 H Lactic Acid Calcium 9.0 Magnesium 1.8 Iron TIBC % Saturation Unsat Iron Binding Ferritin Total Bilirubin 0.2 Direct Bilirubin < 0.2 AST 83 H ALT 42 H Alkaline Phosphatase 81 Ammonia Total Creatine Kinase 4209 H Troponin I High Sens B-Natriuretic Peptide Total Protein 6.6 Albumin 3.9 Lipase 9 Vitamin B12 Folate Urine Color Urine Appearance Urine pH Ur Specific [place] Urine Protein Urine Glucose (UA) Urine Ketones Urine Blood Urine Nitrite Ur Leukocyte Esterase Urine RBC Urine WBC Ur Squamous Epith Cells Urine Bacteria Urine Opiates Screen Ur Barbiturates Screen Ur Phencyclidine Scrn Ur Amphetamines Screen U Benzodiazepines Scrn Urine Cocaine Screen U Marijuana (THC) Screen Coronavirus (PCR) Influenza Type A (PCR) Influenza Type B (PCR) RSV RNA Qual (PCR) 09/05/20 09/05/20 09/05/20 10:46 10:46 15:03 WBC RBC Hgb Hct MCV MCH MCHC RDW Plt Count MPV Immature Gran % (Auto) Neut % (Auto) Lymph % (Auto) Dawson % (Auto) Eos % (Auto) Baso % (Auto) Lymph # (Auto) Dawson # (Auto) Eos # (Auto) Baso # (Auto) Abs Immat Gran (auto) Absolute Neuts (auto) Absolute Nucleated RBC Nucleated RBC % (auto) PT INR APTT D-Dimer VBG pH VBG pCO2 VBG pO2 VBG HCO3 VBG O2 Saturation VBG Base Excess Sodium Potassium Chloride Carbon Dioxide Anion Gap BUN Creatinine Estim Creat Clear Calc Estimated GFR POC Glucose Random Glucose Lactic Acid 1.9 Calcium Magnesium Iron TIBC % Saturation Unsat Iron Binding Ferritin Total Bilirubin Direct Bilirubin AST ALT Alkaline Phosphatase Ammonia 31 Total Creatine Kinase Troponin I High Sens 6.4 B-Natriuretic Peptide < 10 Total Protein Albumin Lipase Vitamin B12 Folate Urine Color Urine Appearance Urine pH Ur Specific [place] Urine Protein Urine Glucose (UA) Urine Ketones Urine Blood Urine Nitrite Ur Leukocyte Esterase Urine RBC Urine WBC Ur Squamous Epith Cells Urine Bacteria Urine Opiates Screen Ur Barbiturates Screen Ur Phencyclidine Scrn Ur Amphetamines Screen U Benzodiazepines Scrn Urine Cocaine Screen U Marijuana (THC) Screen Coronavirus (PCR) Influenza Type A (PCR) Influenza Type B (PCR) RSV RNA Qual (PCR) 09/05/20 09/05/20 09/05/20 15:04 16:14 16:56 WBC RBC Hgb Hct MCV MCH MCHC RDW Plt Count MPV Immature Gran % (Auto) Neut % (Auto) Lymph % (Auto) Dawson % (Auto) Eos % (Auto) Baso % (Auto) Lymph # (Auto) Dawson # (Auto) Eos # (Auto) Baso # (Auto) Abs Immat Gran (auto) Absolute Neuts (auto) Absolute Nucleated RBC Nucleated RBC % (auto) PT INR APTT D-Dimer VBG pH 7.36 VBG pCO2 56 VBG pO2 32 VBG HCO3 31 VBG O2 Saturation 50.1 VBG Base Excess 4.4 Sodium Potassium Chloride Carbon Dioxide Anion Gap BUN Creatinine Estim Creat Clear Calc Estimated GFR POC Glucose Random Glucose Lactic Acid Calcium Magnesium Iron TIBC % Saturation Unsat Iron Binding Ferritin Total Bilirubin Direct Bilirubin AST ALT Alkaline Phosphatase Ammonia Total Creatine Kinase Troponin I High Sens B-Natriuretic Peptide Total Protein Albumin Lipase Vitamin B12 Folate Urine Color YELLOW Urine Appearance CLEAR Urine pH 7.0 Ur Specific [place] 1.010 Urine Protein NEG Urine Glucose (UA) NEG Urine Ketones NEG Urine Blood TRACE Urine Nitrite NEG Ur Leukocyte Esterase 2+ H Urine RBC 0-2 Urine WBC 10-14 H Ur Squamous Epith Cells 2+ Urine Bacteria 1+ Urine Opiates Screen Ur Barbiturates Screen Ur Phencyclidine Scrn Ur Amphetamines Screen U Benzodiazepines Scrn Urine Cocaine Screen U Marijuana (THC) Screen Coronavirus (PCR) NEGATIVE Influenza Type A (PCR) NEGATIVE Influenza Type B (PCR) NEGATIVE RSV RNA Qual (PCR) NEGATIVE 09/05/20 09/05/20 09/06/20 16:56 21:48 05:28 WBC 5.2 RBC 2.97 L Hgb 8.4 L Hct 27.1 L MCV 91.2 MCH 28.3 MCHC 31.0 RDW 13.3 Plt Count 331 MPV 9.5 Immature Gran % (Auto) Cancelled Neut % (Auto) Cancelled Lymph % (Auto) Cancelled Dawson % (Auto) Cancelled Eos % (Auto) Cancelled Baso % (Auto) Cancelled Lymph # (Auto) Cancelled Dawson # (Auto) Cancelled Eos # (Auto) Cancelled Baso # (Auto) Cancelled Abs Immat Gran (auto) Cancelled Absolute Neuts (auto) Cancelled Absolute Nucleated RBC 0.000 Nucleated RBC % (auto) 0.0 PT INR APTT D-Dimer VBG pH VBG pCO2 VBG pO2 VBG HCO3 VBG O2 Saturation VBG Base Excess Sodium Potassium Chloride Carbon Dioxide Anion Gap BUN Creatinine Estim Creat Clear Calc Estimated GFR POC Glucose 89 Random Glucose Lactic Acid Calcium Magnesium Iron TIBC % Saturation Unsat Iron Binding Ferritin Total Bilirubin Direct Bilirubin AST ALT Alkaline Phosphatase Ammonia Total Creatine Kinase Troponin I High Sens B-Natriuretic Peptide Total Protein Albumin Lipase Vitamin B12 Folate Urine Color Urine Appearance Urine pH Ur Specific [place] Urine Protein Urine Glucose (UA) Urine Ketones Urine Blood Urine Nitrite Ur Leukocyte Esterase Urine RBC Urine WBC Ur Squamous Epith Cells Urine Bacteria Urine Opiates Screen Not Detected Ur Barbiturates Screen Not Detected Ur Phencyclidine Scrn Not Detected Ur Amphetamines Screen Not Detected U Benzodiazepines Scrn Not Detected Urine Cocaine Screen Not Detected U Marijuana (THC) Screen Not Detected Coronavirus (PCR) Influenza Type A (PCR) Influenza Type B (PCR) RSV RNA Qual (PCR) 09/06/20 09/06/20 09/06/20 05:28 05:28 08:09 WBC RBC Hgb Hct MCV MCH MCHC RDW Plt Count MPV Immature Gran % (Auto) Neut % (Auto) Lymph % (Auto) [place] % (Auto) Eos % (Auto) Baso % (Auto) Lymph # (Auto) [place] # (Auto) Eos # (Auto) Baso # (Auto) Abs Immat Gran (auto) Absolute Neuts (auto) Absolute Nucleated RBC Nucleated RBC % (auto) PT INR APTT D-Dimer VBG pH VBG pCO2 VBG pO2 VBG HCO3 VBG O2 Saturation VBG Base Excess Sodium 140 Potassium 3.5 Chloride 102 Carbon Dioxide 30 H Anion Gap 12 BUN 56 H Creatinine 1.74 H Estim Creat Clear Calc 41.7 Estimated GFR 31 POC Glucose 132 H Random Glucose 108 Lactic Acid Calcium 8.0 L D Magnesium Iron 47 TIBC 244 % Saturation 19 Unsat Iron Binding 197 Ferritin 122 Total Bilirubin Direct Bilirubin AST ALT Alkaline Phosphatase Ammonia Total Creatine Kinase 1603 H D Troponin I High Sens B-Natriuretic Peptide Total Protein Albumin Lipase Vitamin B12 256 Folate 9.2 Urine Color Urine Appearance Urine pH Ur Specific [place] Urine Protein Urine Glucose (UA) Urine Ketones Urine Blood Urine Nitrite Ur Leukocyte Esterase Urine RBC Urine WBC Ur Squamous Epith Cells Urine Bacteria Urine Opiates Screen Ur Barbiturates Screen Ur Phencyclidine Scrn Ur Amphetamines Screen U Benzodiazepines Scrn Urine Cocaine Screen U Marijuana (THC) Screen Coronavirus (PCR) Influenza Type A (PCR) Influenza Type B (PCR) RSV RNA Qual (PCR) 09/06/20 10:58 WBC RBC Hgb Hct MCV MCH MCHC RDW Plt Count MPV Immature Gran % (Auto) Neut % (Auto) Lymph % (Auto) [place] % (Auto) Eos % (Auto) Baso % (Auto) Lymph # (Auto) [place] # (Auto) Eos # (Auto) Baso # (Auto) Abs Immat Gran (auto) Absolute Neuts (auto) Absolute Nucleated RBC Nucleated RBC % (auto) PT INR APTT D-Dimer VBG pH VBG pCO2 VBG pO2 VBG HCO3 VBG O2 Saturation VBG Base Excess Sodium Potassium Chloride Carbon Dioxide Anion Gap BUN Creatinine Estim Creat Clear Calc Estimated GFR POC Glucose 167 H Random Glucose Lactic Acid Calcium Magnesium Iron TIBC % Saturation Unsat Iron Binding Ferritin Total Bilirubin Direct Bilirubin AST ALT Alkaline Phosphatase Ammonia Total Creatine Kinase Troponin I High Sens B-Natriuretic Peptide Total Protein Albumin Lipase Vitamin B12 Folate Urine Color Urine Appearance Urine pH Ur Specific [place] Urine Protein Urine Glucose (UA) Urine Ketones Urine Blood Urine Nitrite Ur Leukocyte Esterase Urine RBC Urine WBC Ur Squamous Epith Cells Urine Bacteria Urine Opiates Screen Ur Barbiturates Screen Ur Phencyclidine Scrn Ur Amphetamines Screen U Benzodiazepines Scrn Urine Cocaine Screen U Marijuana (THC) Screen Coronavirus (PCR) Influenza Type A (PCR) Influenza Type B (PCR) RSV RNA Qual (PCR) Imaging Radiology Impressions: ITS Impressions Chest X-Ray 09/05/20 10:21 IMPRESSION: Unremarkable examination. Head CT 09/05/20 10:36 IMPRESSION: No acute intracranial abnormality. Pulmonary Perfusion Imaging 09/05/20 12:07 IMPRESSION: Normal radionuclide lung perfusion scan. Mental Status Exam Mental Status Exam Patient Appearance: Appropriate Patient Orientation: Person, Place, Time and Situation Level of Consciousness: Awake, Appropriate and Alert Patient Behavior: Appropriate Mood Description: Calm Affect Description: Calm Ability to Follow Directions: Excellent Speech Pattern: Clear and Appropriate Hallucinations: None Delusions: Not Present Thought Content: positive for Goal Oriented Judgement: Good Medications Medications Current Medications Generic Name Dose Route Start Last Admin Trade Name Freq PRN Reason Stop Dose Admin Acetaminophen 650 mg 09/05/20 21:22 09/06/20 07:53 Acetaminophen 325 Mg Tablet PO 650 mg Q6H PRN Administration Pain, Mild (Pain Scale 1-3) Aripiprazole 10 mg 09/07/20 09:00 Aripiprazole 10 Mg Tablet PO DAILY [facility] Atorvastatin Calcium 20 mg 09/07/20 09:00 Atorvastatin Calcium 20 Mg Tablet PO DAILY [facility] Buprenorphine/Naloxone 2 film 09/06/20 13:30 09/06/20 14:24 Buprenorphine/Naloxone 8/2 Mg Film SUBLINGUAL 2 film BID [facility] Administration Buspirone HCl 2.5 mg 09/06/20 15:00 09/06/20 14:24 Buspirone Hcl 5 Mg Tablet PO 2.5 mg TID [facility] Administration Doxepin HCl 50 mg 09/06/20 21:00 Doxepin Hcl 25 Mg Capsule PO BEDTIME [facility] Doxepin HCl 75 mg 09/07/20 09:00 Doxepin Hcl 25 Mg Capsule PO DAILY [facility] Duloxetine HCl 30 mg 09/06/20 21:00 Duloxetine Hcl 30 Mg Capsule.Dr PO BID [facility] Gabapentin 100 mg 09/06/20 15:00 09/06/20 14:24 Gabapentin 100 Mg Capsule PO 100 mg TID [facility] Administration Ceftriaxone Sodium 1 gm/ 50 mls @ 100 mls/hr 09/05/20 22:00 09/05/20 23:07 Sodium Chloride IV Infused Q24H [facility] Infusion Sodium Chloride 1,000 mls @ 100 mls/hr 09/05/20 21:22 09/06/20 07:47 Ns IVCONT 100 mls/hr .Q10H [facility] Administration Insulin Human Lispro 0 unit 09/05/20 21:22 09/06/20 12:35 Insulin Lispro 100 Unit/Ml 3 Ml Vial SUBCUT Not Given QIDACHS [facility] Protocol Magnesium Oxide 400 mg 09/07/20 09:00 Magnesium Oxide 400 Mg Tablet PO DAILY [facility] Ondansetron HCl 4 mg 09/05/20 21:22 Ondansetron Hcl 4 Mg/2 Ml Vial IVPUSH Q8H PRN Nausea and Vomiting Pharmacy Consult 1 each 09/05/20 19:40 Consult Rx Perform Med Rec MISCELLANE ONCE PRN Consult order Pharmacy Consult 1 each 09/05/20 21:22 Consult Rx Perform Med Rec MISCELLANE ONCE PRN Consult order Prazosin HCl 2 mg 09/07/20 09:00 Prazosin Hcl 1 Mg Capsule PO DAILY [facility] Protocol Sodium Chloride 3 ml 09/06/20 00:00 09/06/20 07:50 0.9 % Sodium Chloride Flush 3 Ml Syringe IVFLUSH Not Given QSHIFT [facility] Venlafaxine HCl 150 mg 09/07/20 09:00 Venlafaxine Hcl Er 150 Mg Cap.Er.24h PO DAILY [facility] Allergies Allergies Allergy/AdvReac Type Severity Reaction Status Date / Time Sulfa (Sulfonamide Allergy Unknown HIVES Verified 07/20/20 14:16 Antibiotics) metoclopramide [Reglan] AdvReac Unknown RESTLESS Verified 07/20/20 14:16 LEGS Assessment & Plan Assessment & Plan (1) QT prolongation: Status: Acute Code(s): R94.31 - Abnormal electrocardiogram [ECG] [EKG] (2) Major depressive disorder: Status: Acute Code(s): F32.9 - Major depressive disorder, single episode, unspecified Recommendations: Discussed with patient and agreeable to decreasing Abilify dose from 15mg QD to 10mg QD Also decrease daytime dose of doxepin that is documented as being 75mg QD down to 50mg QD follow EKG no other changes to minimize psychiatric decompensation Greater than 50% of the session was spent on counseling and/or coordination of care
[2020-09-06 16:26] LABS: Glucose, Whole Blood 101 mg/dL (60-115)
[2020-09-06 19:16] VITALS: BP 105/57; PULSE 87; RESP 20; TEMP 36.4; O2SAT 94
--- NOTE | 2020-09-06 20:17 | PC.NURSE ---
09/06/20 20:00 monitor reading recorded by RAY and verified by Vlad DUNCAN RN.
[2020-09-06 21:15] LABS: Glucose, Whole Blood 131 mg/dL (60-115)
[2020-09-06] MEDS: cefTRIAXone sodium 1 GM in 0.9 % Sodium Chloride 50 ML IV (22:08)
[2020-09-06] MEDS: Doxepin HCl 25 MG CAPSULE 50 MG PO (22:08)
[2020-09-06] MEDS: DULoxetine HCl 30 MG CAPSULE.DR PO (22:09)
[2020-09-06] MEDS: 0.9 % Sodium Chloride Flush 3 ML SYRINGE IVFLUSH (23:41)
[2020-09-07] VITALS: BP 124/60; PULSE 92; RESP 20; TEMP 37.2; O2SAT 94
[2020-09-07 03:55] VITALS: BP 116/66; PULSE 92; RESP 20; TEMP 36.9; O2SAT 91
[2020-09-07 07:26] VITALS: BP 128/70; PULSE 88; RESP 16; TEMP 36.2; O2SAT 93
[2020-09-07 07:35] LABS: Glucose, Whole Blood 124 mg/dL (60-115)
[2020-09-07 07:53] LABS: Anion Gap 13 (12-20); Blood Urea Nitrogen 20 mg/dL (9-16); Calcium 8.1 mg/dL (8.4-10.2); Carbon Dioxide 32 mmol/L (22-29); Chloride 103 mmol/L (96-108); Creatinine Clr Calc Pharmacy 77.2; Estimated Glomerular Filt Rate > 60; Glucose Random 99 mg/dL (60-115); Potassium 3.8 mmol/l (3.3-5.1); Sodium 144 mmol/L (135-145)
[2020-09-07] MEDS: busPIRone HCl 5 MG TABLET 2.5 MG PO (08:16)
[2020-09-07] MEDS: ARIPiprazole 10 MG TABLET PO (08:17)
[2020-09-07] MEDS: DULoxetine HCl 30 MG CAPSULE.DR PO (08:17)
[2020-09-07] MEDS: Prazosin HCL 1 MG CAPSULE 2 MG PO (08:17)
[2020-09-07] MEDS: Atorvastatin Calcium 20 MG TABLET PO (08:17)
[2020-09-07] MEDS: Gabapentin 100 MG CAPSULE PO (08:17)
[2020-09-07] MEDS: Doxepin HCl 25 MG CAPSULE 75 MG PO (08:17)
[2020-09-07] MEDS: Magnesium Oxide 400 MG TABLET PO (08:18)
[2020-09-07] MEDS: Buprenorphine/Naloxone 8/2 mg FILM 1 FILM SUBLINGUAL (08:18)
[2020-09-07] MEDS: Venlafaxine HCl ER 150 MG CAP.ER.24H PO (08:18)
--- NOTE | 2020-09-07 10:53 | P.DS_ITS ---
DS: Providers Provider Date of admission: 09/05/20 19:43 Primary care physician: Unknown Physician Consults: 09/05/20 21:22 Consult to Nephrology Routine Consulting Provider: Peter Still Reason for consultation: doni on ckd Has provider been notified: No Consult to Psychiatry Routine Consulting Provider: Martine Salazar Reason for consultation: multiple medications, prolonged QTC, recent change in medications. Has provider been notified: No 09/06/20 09:16 Consult to Psychiatry Routine Consulting Provider: Martine Salazar Reason for consultation: PTSD, Bipolar -multiple psych meds Has provider been notified: No DS: Diagnosis Discharge Diagnosis (1) Renal failure: Status: Acute DS: Medications Discharge Medications Home Medications: Home Medications Medication Instructions Recorded Confirmed aripiprazole 10 mg tablet 10 mg PO DAILY 07/20/20 09/05/20 aripiprazole 5 mg tablet 5 mg PO DAILY 07/20/20 09/05/20 buprenorphine 8 mg-naloxone 2 mg 2 film SUBLINGUAL DAILY 07/20/20 09/05/20 sublingual film clonidine HCl 0.1 mg tablet 0.1 mg PO BEDTIME PRN tab 07/20/20 09/05/20 clonidine HCl 0.2 mg tablet 0.2 mg PO BEDTIME 07/20/20 09/05/20 doxepin 50 mg capsule 100 mg PO BEDTIME 07/20/20 09/06/20 doxepin 75 mg capsule 75 mg PO DAILY cap 07/20/20 09/05/20 duloxetine 30 mg capsule,delayed 30 mg PO BID 07/20/20 09/06/20 release furosemide 20 mg tablet 20 mg PO BID tab 07/20/20 09/05/20 gabapentin 100 mg capsule 100 mg PO TID 07/20/20 09/05/20 gabapentin 400 mg capsule 400 mg PO TID 07/20/20 09/05/20 hydrochlorothiazide 50 mg tablet 25 mg PO DAILY tab 07/20/20 09/05/20 hydroxyzine HCl 50 mg tablet 75 mg PO TID tab 07/20/20 09/06/20 magnesium oxide 125 mg PO BID 07/20/20 09/06/20 metformin 500 mg tablet 500 mg PO DAILY tab 07/20/20 09/06/20 prazosin 2 mg capsule 4 mg PO BEDTIME cap 07/20/20 09/06/20 atorvastatin 1 tab PO DAILY 09/05/20 09/05/20 venlafaxine 150 mg PO DAILY 09/05/20 09/06/20 benztropine [Cogentin] 2 mg PO BEDTIME 09/06/20 09/06/20 buspirone [BuSpar] 2.5 mg PO TID 09/06/20 09/06/20 ferrous sulfate [FeroSul] 325 mg PO DAILY 09/06/20 09/06/20 metformin 1,000 mg PO BEDTIME 09/06/20 09/06/20 risperidone [Risperdal] 1 mg PO BEDTIME 09/06/20 09/06/20 DS: Summary Hospital Course Hospital Course: 50-year-old woman presenting from a intermediate program with lightheadedness, confusion, and lethargy. She was also noted to have low blood pressures. She had an echocardiogram yesterday, which showed an EF of 60%. She was scheduled to have an exercise stress test today, but she was unable to. She was having this cardiac workup due to an increased QTc, unlikely related to her multiple psychiatric medications. She recently had these medications decreased due to this, and since then, she reports that she has had more lethargy and has been not as active. She also reported a poor appetite and feeling more tired as of lately. She also reported that she has been having some workup regarding her kidneys, which have been worsening over some months now. She seems quite vague, answering some questions and frustrated at times as well saying that she was finding it hard to remember certain things. She denied fever, chills, nausea, vomiting, diarrhea, or chest pain. In the ER, her CK was noted to be elevated at 4209, AST 83, ALT 42, ammonia 31, troponin 6.4, creatinine 3.26, sodium 133. She also had normal blood gas. Urinalysis showed 2+ leukocyte esterase and 1+ bacteria. Urine opiates not detected, negative coronavirus. She was noted to be quite hypotensive with lowest reading of 83/44. She did receive a dose of midodrine while in the ER with 2.5 L of IV fluids. She was awake and alert during the interview. She will be admitted for further management and treatment of DONI, rhabdomyolysis, and hypotension. PAST MEDICAL HISTORY: 1. Probable chronic renal failure. 2. History of substance abuse including pain medication, currently on Suboxone. 3. Hypertension. 4. Bipolar disorder. 5. Diabetes mellitus. Hospital Course problem hopper section: DONI probably multifactorial secondary to low blood pressure as well as rhabdomyolysis: Patient was started on hydration and seems improved. CPK initially was 4000 range and improved to 700 range now. Patient was encouraged to well hydrated and she is seeing her p.o. intake is also improving. Patient is to follow-up CPK and renal function electrolytes with PCP out patiently. Anemia hopper: Patient is aware that she has anemia she says that she says iron she takes iron pills. Monitor H&H with PCP and further management outpatient. Psych medication hopper: Abilify and doxepin was adjusted as per psych. As per telemetry her QT is around 480 millisecond which seems to be improving. Follow-up with psych and Cardiology up out patiently. Above management discussed with the patient in detail length she understand and in agreement with the above plan, time spent 50 minutes and 50% time spent on counseling. Significant findings: As above. Procedures performed: None. Treatment and response: As above. Complications: None. Time Spent with Patient Time attestation: Total time spent providing and/or coordinating discharge services: Physical Exam Vital Signs: Vital Signs: Last Vital Signs Temp 97.1 F 09/07/20 07:26 Pulse 88 09/07/20 07:26 Resp 16 09/07/20 07:26 BP 128/70 09/07/20 07:26 Pulse Ox 93 09/07/20 07:26 Body Mass Index 35.2 Physical exam: Constitutional: Not in distress Cvs: rrr, [id number] , no murmur res: clear to auscultation ,no rhonchii or wheezing abd: no rebound or guarding ,nt, bs present. ext pulses present , no cyanosis neuro: axo3 , nonfocal. DS: Data Data Completed and Pending Labs on day of discharge: 09/05/20 Breakfast Low Sodium Diet 09/05/20 10:21 ECG 12 lead EKG Stat EKG Documentation DIRECTED XR chest 1V Stat 09/05/20 10:30 0.9 % Sodium Chloride [Ns] 500 ml IV 500 mls/hr 09/05/20 10:36 CT head/brain wo con Stat 09/05/20 10:46 B Type Natriuretic Peptide Stat Basic Metabolic Panel Stat Complete Blood Count Auto Diff Stat Creatine Kinase Total Stat D Dimer Stat Lactic Acid Stat Lipase Stat Liver Panel Stat Magnesium Stat Partial Thromboplastin Time Stat Prothrombin Time INR Stat Troponin-I High Sensitivity Stat 09/05/20 12:07 NM pul perfusion Routine 09/05/20 13:45 0.9 % Sodium Chloride [Ns] 1,000 ml IVCONT 999 mls/hr Midodrine HCl [ProAmatine] 5 mg PO ONCE ONE 09/05/20 14:04 Naloxone HCl [Narcan] 0.4 mg IVPUSH ONCE ONE 09/05/20 15:00 0.9 % Sodium Chloride [Ns] 1,000 ml IVCONT 999 mls/hr 09/05/20 15:03 Ammonia Stat 09/05/20 15:04 SARS-CoV2/FLU/RSV Stat 09/05/20 15:33 Add Laboratory Test Stat 09/05/20 16:14 Venous Blood Gas Stat 09/05/20 16:56 Drug Screen Urine Stat 09/05/20 19:39 Transfer Order Routine 09/05/20 21:22 EKG Documentation DIRECTED 09/05/20 21:48 Glucose, Whole Blood Routine 09/05/20 21:56 cefTRIAXone sodium [Rocephin] 1 gm .ROUTE .STK-MED ONE 09/06/20 05:28 Basic Metabolic Panel DAILY@0600 Complete Blood Count no Diff DAILY@0600 Creatine Kinase Total Routine Ferritin Routine Folate Routine IRON PROFILE Routine Vitamin B12 Routine 09/06/20 06:00 ECG 12 lead EKG Stat 09/06/20 08:09 Glucose, Whole Blood Routine 09/06/20 10:44 Add Laboratory Test Routine 09/06/20 10:58 Glucose, Whole Blood Routine 09/06/20 13:30 Buprenorphine/Naloxone 8/2 mg [Suboxone 8/2 mg] 2 film SUBLINGUAL BID 09/06/20 16:18 Glucose, Whole Blood Routine 09/06/20 20:47 Glucose, Whole Blood Routine 09/06/20 22:03 cefTRIAXone sodium [Rocephin] 1 gm .ROUTE .STK-MED ONE 09/07/20 05:43 Basic Metabolic Panel DAILY@0600 Creatine Kinase Total Routine 09/07/20 07:31 Glucose, Whole Blood Routine 09/07/20 09:00 ARIPiprazole [Abilify] 5 mg PO DAILY Buprenorphine/Naloxone 8/2 mg [Suboxone 8/2 mg] 2 film SUBLINGUAL DAILY DULoxetine HCl [Cymbalta] 30 mg PO DAILY Laboratory Last Values WBC 5.2 X10*3/uL (4.8-10.8) 09/06/20 05:28 RBC 2.97 X10*6/uL (4.20-5.50) L 09/06/20 05:28 Hgb 8.4 g/dl (12.0-16.0) L 09/06/20 05:28 Hct 27.1 % (37-47) L 09/06/20 05:28 MCV 91.2 fL (80-98) 09/06/20 05:28 MCH 28.3 pg (27.0-33.0) 09/06/20 05:28 MCHC 31.0 g/dl (31.0-35.0) 09/06/20 05:28 RDW 13.3 % (11.0-16.0) 09/06/20 05:28 Plt Count 331 X10*3/uL (160-400) 09/06/20 05:28 MPV 9.5 fL (9.4-12.3) 09/06/20 05:28 Immature Gran % (Auto) Cancelled 09/06/20 05:28 Neut % (Auto) Cancelled 09/06/20 05:28 Lymph % (Auto) Cancelled 09/06/20 05:28 [place] % (Auto) Cancelled 09/06/20 05:28 Eos % (Auto) Cancelled 09/06/20 05:28 Baso % (Auto) Cancelled 09/06/20 05:28 Lymph # (Auto) Cancelled 09/06/20 05:28 [place] # (Auto) Cancelled 09/06/20 05:28 Eos # (Auto) Cancelled 09/06/20 05:28 Baso # (Auto) Cancelled 09/06/20 05:28 Abs Immat Gran (auto) Cancelled 09/06/20 05:28 Absolute Neuts (auto) Cancelled 09/06/20 05:28 Absolute Nucleated RBC 0.000 X10*3/uL (0.0-0.012) 09/06/20 05:28 Nucleated RBC % (auto) 0.0 /100WBC (0.0-0.2) 09/06/20 05:28 PT 10.1 SEC (10.8-13.0) L 09/05/20 10:46 INR 0.9 (0.9-1.1) 09/05/20 10:46 APTT 28.2 SEC (24.1-38.0) 09/05/20 10:46 D-Dimer 671 NG/ML 09/05/20 10:46 VBG pH 7.36 (7.32-7.43) 09/05/20 16:14 VBG pCO2 56 mmhg 09/05/20 16:14 VBG pO2 32 mmhg 09/05/20 16:14 VBG HCO3 31 mmol/L 09/05/20 16:14 VBG O2 Saturation 50.1 % 09/05/20 16:14 VBG Base Excess 4.4 mmol/L 09/05/20 16:14 Sodium 144 mmol/L (135-145) 09/07/20 05:43 Potassium 3.8 mmol/l (3.3-5.1) 09/07/20 05:43 Chloride 103 mmol/L (96-108) 09/07/20 05:43 Carbon Dioxide 32 mmol/L (22-29) H 09/07/20 05:43 Anion Gap 13 (-20) 09/07/20 05:43 BUN 20 mg/dL (9-16) H D 09/07/20 05:43 Creatinine 0.94 mg/dL (0.5-1.4) 09/07/20 05:43 Estim Creat Clear Calc 77.2 09/07/20 05:43 Estimated GFR > 60 09/07/20 05:43 POC Glucose 124 mg/dL (60-115) H 09/07/20 07:31 Random Glucose 99 mg/dL (60-115) 09/07/20 05:43 Lactic Acid 1.9 mmol/L (0.5-2.0) 09/05/20 10:46 Calcium 8.1 mg/dL (8.4-10.2) L 09/07/20 05:43 Magnesium 1.8 mg/dL (1.6-2.6) 09/05/20 10:46 Iron 47 mcg/dL (30-160) 09/06/20 05:28 TIBC 244 mcg/dL (228-428) 09/06/20 05:28 % Saturation 19 % (15-50) 09/06/20 05:28 Unsat Iron Binding 197 ug/dL 09/06/20 05:28 Ferritin 122 ng/mL (10-250) 09/06/20 05:28 Total Bilirubin 0.2 mg/dL (0.0-1.0) 09/05/20 10:46 Direct Bilirubin < 0.2 mg/dL (0.0-0.5) 09/05/20 10:46 AST 83 U/L (5-31) H 09/05/20 10:46 ALT 42 U/L (0-31) H 09/05/20 10:46 Alkaline Phosphatase 81 U/L (39-117) 09/05/20 10:46 Ammonia 31 umol/L (13-55) 09/05/20 15:03 Total Creatine Kinase 731 U/L (26-140) H D 09/07/20 05:43 Troponin I High Sens 6.4 ng/L (<3.5-17.0) 09/05/20 10:46 B-Natriuretic Peptide < 10 pg/mL (<100) 09/05/20 10:46 Total Protein 6.6 g/dL (6.5-8.0) 09/05/20 10:46 Albumin 3.9 g/dL (3.5-5.0) 09/05/20 10:46 Lipase 9 U/L (8-78) 09/05/20 10:46 Vitamin B12 256 pg/mL (200-900) 09/06/20 05:28 Folate 9.2 ng/mL (> or = 4.0) 09/06/20 05:28 Urine Color YELLOW 09/05/20 16:56 Urine Appearance CLEAR 09/05/20 16:56 Urine pH 7.0 (5.0-8.0) 09/05/20 16:56 Ur Specific [place] 1.010 (1.005-1.025) 09/05/20 16:56 Urine Protein NEG MG/DL (NEG-TRACE) 09/05/20 16:56 Urine Glucose (UA) NEG MG/DL (NEG) 09/05/20 16:56 Urine Ketones NEG MG/DL (NEG) 09/05/20 16:56 Urine Blood TRACE (NEG) 09/05/20 16:56 Urine Nitrite NEG (NEG) 09/05/20 16:56 Ur Leukocyte Esterase 2+ (NEG) H 09/05/20 16:56 Urine RBC 0-2 /HPF (0) 09/05/20 16:56 Urine WBC 10-14 /HPF (0-4) H 09/05/20 16:56 Ur Squamous Epith Cells 2+ /LPF 09/05/20 16:56 Urine Bacteria 1+ /LPF 09/05/20 16:56 Urine Opiates Screen Not Detected (Not Detect) 09/05/20 16:56 Ur Barbiturates Screen Not Detected (Not Detect) 09/05/20 16:56 Ur Phencyclidine Scrn Not Detected (Not Detect) 09/05/20 16:56 Ur Amphetamines Screen Not Detected (Not Detect) 09/05/20 16:56 U Benzodiazepines Scrn Not Detected (Not Detect) 09/05/20 16:56 Urine Cocaine Screen Not Detected (Not Detect) 09/05/20 16:56 U Marijuana (THC) Screen Not Detected (Not Detect) 09/05/20 16:56 Coronavirus (PCR) NEGATIVE (Negative) 09/05/20 15:04 Influenza Type A (PCR) NEGATIVE (Negative) 09/05/20 15:04 Influenza Type B (PCR) NEGATIVE (Negative) 09/05/20 15:04 RSV RNA Qual (PCR) NEGATIVE (Negative) 09/05/20 15:04 Discharge Plan Discharge Patient Disposition: Home, Self-Care Referrals: Peter Still MD [Physician] - (Follow-up with Nephrology in 1 week.) Physician,Unknown [Primary Care Provider] - Discharge Medications: New doxepin 50 mg capsule 50 mg PO DAILY Qty: 30 RF: 0 cefuroxime axetil 250 mg tablet 250 mg PO Q12H Qty: 10 RF: 0 Continued atorvastatin 20 mg tablet 1 tab PO DAILY RF: 0 venlafaxine 150 mg capsule,extended release 24hr 150 mg PO DAILY RF: 0 buspirone 5 mg Tablet 2.5 mg PO TID RF: 0 ferrous sulfate [FeroSul] 325 mg (65 mg iron) Tablet 325 mg PO DAILY RF: 0 metformin 1,000 mg Tablet 1,000 mg PO BEDTIME RF: 0 benztropine 2 mg Tablet 2 mg PO BEDTIME RF: 0 risperidone [Risperdal] 1 mg Tablet 1 mg PO BEDTIME RF: 0 gabapentin 100 mg capsule 100 mg PO TID RF: 0 gabapentin 400 mg capsule 400 mg PO TID RF: 0 buprenorphine-naloxone 8-2 mg film 2 film sublingual DAILY RF: 0 duloxetine 30 mg capsule,delayed release(DR/EC) 30 mg PO BID RF: 0 magnesium oxide 250 mg magnesium tablet 125 mg PO BID RF: 0 prazosin 2 mg capsule 4 mg PO BEDTIME RF: 0 clonidine HCl 0.2 mg tablet 0.2 mg PO BEDTIME RF: 0 doxepin 50 mg capsule 100 mg PO BEDTIME RF: 0 metformin 500 mg tablet 500 mg PO DAILY RF: 0 aripiprazole 10 mg tablet 10 mg PO DAILY RF: 0 hydroxyzine HCl 50 mg tablet 75 mg PO TID RF: 0 clonidine HCl 0.1 mg tablet 0.1 mg PO BEDTIME PRN (Reason: Blood Pressure) RF: 0 furosemide 20 mg tablet 20 mg PO BID RF: 0 hydrochlorothiazide 50 mg tablet 25 mg PO DAILY RF: 0 Discontinued aripiprazole 5 mg tablet 5 mg PO DAILY RF: 0 doxepin 75 mg capsule 75 mg PO DAILY RF: 0 Discharge Orders: Discharge Order (Routine); Ordered 09/07/20 Ordered By: Eugene Streeter Diet: advance to usual diet Activity on Discharge: As tolerated Other Ambulatory Orders: Basic Metabolic Panel Fasting (Routine) Timeframe: 1 Week Facility: [facility] - Location: Laboratory Ordered By: Eugene Streeter Complete Blood Count no Diff (Routine) Timeframe: 1 Week Facility: [facility] - Location: Laboratory Ordered By: Eugene Streeter Creatine Kinase Total (Routine) Timeframe: 1 Week Facility: [facility] - Location: Laboratory Ordered By: Eugene Streeter Visit Report Forms: Patient Portal Discharge page Care Plan Goals: DONI and abdominal assist probably related to dehydration and immobility: Patient seems to be improved with IV hydration, renal function seems significantly improved. Patient is to follow-up with PCP and repeat BMP outpatient in a week and further management as per PCP also repeat CPK with PCP. Anemia hopper patient says that she takes iron pills for that and she is aware of that and outpatient workup with PCP and repeat CBC with PCP. QTC hopper on telemetry seems improving to 480 millisecond further management outpatient with cardio and PCP. Health Concerns: As above. Plan of Treatment: As above.
[2020-09-07 11:08] VITALS: BP 139/79; PULSE 103; RESP 18; TEMP 36.1; O2SAT 95
[2020-09-07 11:24] LABS: Alanine Aminotransferase 28 U/L (0-31); Albumin Level 3.6 g/dL (3.5-5.0); Alkaline Phosphatase 73 U/L (39-117); Aspartate Amino Transferase 25 U/L (5-31); Bilirubin Direct < 0.2 mg/dL (0.0-0.5); Bilirubin Total < 0.2 mg/dL (0.0-1.0); Total Protein 6.1 g/dL (6.5-8.0)
[2020-09-07 11:30] LABS: Glucose, Whole Blood 134 mg/dL (60-115)
--- NOTE | 2020-09-07 11:35 | MHC.CM.PN ---
Patient is being discharged home today no services. patient's brother will provide transport. Nurse, patient are aware.
--- NOTE | 2020-09-07 12:05 | CONS_ITS ---
DATE OF SERVICE: 09/06/2020 HISTORY OF PRESENT ILLNESS: This is a 50-year-old patient who presented to the hospital with lethargy, noted to have an elevated serum creatinine. The patient reports feeling increasingly weak and lethargic with decreased oral intake. She denies any fever or chills. There is no report of nausea, vomiting, or diarrhea. In the emergency room, she was noted to have elevated CPK level and elevated serum creatinine. The patient received IV fluids in the emergency room. Review of her vital signs show a hypotensive event with systolic blood pressure down to the 80s. PAST MEDICAL HISTORY: Remarkable for hypertension, bipolar disorder, diabetes mellitus. MEDICATIONS: As an outpatient reviewed and included clonidine, buspirone, atorvastatin, amlodipine, albuterol. ALLERGIES: SHE IS ALLERGIC TO SULFA DRUGS AND REGLAN. SOCIAL HISTORY: She does not smoke. FAMILY HISTORY: Negative for kidney disease. REVIEW OF SYSTEMS: Ten-point review of system negative except pertinent in history of present illness. PHYSICAL EXAMINATION: VITAL SIGNS: Blood pressure is 170/56, heart rate is 86, respiratory rate 18, she is afebrile. CONSTITUTIONAL: Looks here stated age. No acute distress. NEUROLOGIC: Alert, awake, and oriented. HEENT: Head, atraumatic and normocephalic. NECK: Supple. LUNGS: Decreased breath sounds. CARDIOVASCULAR: S1, S2. No rub. ABDOMEN: Soft, nontender. EXTREMITIES: No peripheral edema. LABORATORY DATA: Showed a white count 5.2, hemoglobin 8.4, platelet count is 331. Sodium 140, potassium 3.5, chloride 102, CO2 30, BUN 56. Creatinine 1.74. CPK is 1603. On admission, CPK was 4209. Creatinine on admission was 3.26. Urinalysis with negative protein, 10 to 14 wbc. IMPRESSION: 1. Acute kidney injury. 2. Rhabdomyolysis. PLAN: The patient presents with acute kidney injury, most likely due to compromised kidney perfusion in a setting of hypertension and in addition to a component of heme pigment nephrotoxicity. She has no evidence of proteinuria and hematuria, which makes an interstitial less likely. It is unclear whether the patient has underlying chronic kidney disease. My recommendation would be to continue with IV fluid, monitor closely her kidney function, and CPK level. Thank you for allowing me to participate in the care of this patient. MD FAITH Titus/KRYSTLE / [id number]
--- NOTE | 2020-09-07 12:06 | PM.PNNEP ---
Subjective Subjective Date of Service: 09/07/20 Interval history: seen and examined feels better no complaints Physical Exam Vital Signs: Vital Signs: Last Vital Signs Temp 96.9 F 09/07/20 11:08 Pulse 103 H 09/07/20 11:08 Resp 18 09/07/20 11:08 BP 139/79 09/07/20 11:08 Pulse Ox 95 09/07/20 11:08 Body Mass Index 35.2 Const: General: no acute distress HENMT: Head: Yes normocephalic and Yes atraumatic Neck: Neck: Yes supple Resp: Auscultation: clear to auscultation bilaterally Cardio: Heart sounds: S1 normal heart sound present and S2 normal heart sound present Extrem: General: No edema Objective Data Labs CBC & Chem 7: 09/06/20 05:28 09/07/20 05:43 Labs: Laboratory Results - last 24 hr 09/06/20 09/06/20 09/07/20 16:18 20:47 05:43 Sodium 144 Potassium 3.8 Chloride 103 Carbon Dioxide 32 H Anion Gap 13 BUN 20 H D Creatinine 0.94 Estim Creat Clear Calc 77.2 Estimated GFR > 60 POC Glucose 101 131 H Random Glucose 99 Calcium 8.1 L Total Bilirubin < 0.2 Direct Bilirubin < 0.2 AST 25 D ALT 28 Alkaline Phosphatase 73 Total Creatine Kinase 731 H D Total Protein 6.1 L Albumin 3.6 09/07/20 09/07/20 07:31 11:17 Sodium Potassium Chloride Carbon Dioxide Anion Gap BUN Creatinine Estim Creat Clear Calc Estimated GFR POC Glucose 124 H 134 H Random Glucose Calcium Total Bilirubin Direct Bilirubin AST ALT Alkaline Phosphatase Total Creatine Kinase Total Protein Albumin Assessment & Plan Assessment and plan (1) DONI (acute kidney injury): Status: Acute (2) Rhabdomyolysis: Status: Acute Assessment and Plan: kidney function normalized DONI due to renal hypo perfusion and component of heme pigment nephrotoxicity hypotensive earlier urine sediment and lack of proteinuria not consistent with glomerular etiology REC discontinue IVF follow kidney function and electrolytes Time Spent With Patient Time: Total time spent is greater than 50% in coordination of care (as documented) at patient's floor/unit and/or counseling patient:
== END 2020-09-07 13:26 | disposition home or self-care (01) | DRG 469 ==
LOC: HO.ED 14:51 → HO.IMC 20:30
PROVIDERS: Nurse Practitioner Acute Care; Admitting Provider Internal Medicine; Emergency Provider Emergency Medicine; Visit Provider Internal Medicine
DX: N17.9 Acute kidney failure, unspecified (principal); I95.2 Hypotension due to drugs; E11.22 Type 2 diabetes mellitus with diabetic chronic kidney disease; I45.81 Long QT syndrome; F11.20 Opioid dependence, uncomplicated; M62.82 Rhabdomyolysis; N39.0 Urinary tract infection, site not specified; I12.9 Hypertensive chronic kidney disease with stage 1 through stage 4 chronic kidney disease, or unspecified chronic kidney disease; N18.9 Chronic kidney disease, unspecified; F31.9 Bipolar disorder, unspecified; E86.0 Dehydration; Z20.828 Contact with and (suspected) exposure to other viral communicable diseases; Z88.2 Allergy status to sulfonamides; Z79.84 Long term (current) use of oral hypoglycemic drugs; Z79.899 Other long term (current) drug therapy
CPT/HCPCS: 0241U; 36415; 70450; 71045; 78580; 80048; 80076; 80307; 81001; 82140; 82550; 82607; 82728; 82746; 82803; 82947; 83540; 83605; 83690; 83735; 83880; 84484; 85025; 85027; 85379; 85610; 85730; 93005; 96361; 96374; 99225; 99285; 99291; A9540; J0574; J0696

== ENCOUNTER → 2020-10-24 19:29 | Outpatient (REF) | payer OTHER, SELFPAY | LOC: HO.SL 19:29 | PROVIDERS: Visit Provider Counselor Addiction (Substance Use Disorder) | DX: F51.11 Primary hypersomnia (principal); R06.83 Snoring | CPT/HCPCS: 95810 ==

== ENCOUNTER → 2021-02-21 08:34 | Outpatient (REF) | payer OTHER, SELFPAY ==
--- NOTE | 2021-02-21 08:37 | CA_ITS ---
Acquisition Time: 2021-02-21 08:35:21 Total Exercise Time: 00:07:00 Test Indications: ABN EKG, SOB Medications: SEE CHART Protocol: SERGO Max HR: 146 BPM 85% of Pred: 171 BPM Max BP: 154/080 mmHG Max Work Load: 8.5 METS Exercise stress test with exercise 7 min of Sergo protocol, without anginal symptoms, with isolated PVCs mostly in recovery, with normotensive response to exercise, without EKG changes meeting criteria for ischemia. Test reviewed with Dr Reaves. Referred By: Erich Dueñas Overread By: BRENT SAUNDERS
== END ==
LOC: HO.CARD 08:34
PROVIDERS: Visit Provider Internal Medicine
DX: R06.02 Shortness of breath (principal)
CPT/HCPCS: 93017

== ENCOUNTER → 2022-06-06 13:28 | Outpatient (BNVA) | payer OTHER, SELFPAY | PROVIDERS: PCP Internal Medicine; Visit Provider Internal Medicine | DX: R94.31 Abnormal electrocardiogram [ECG] [EKG] (principal); R06.02 Shortness of breath; I49.3 Ventricular premature depolarization | CPT/HCPCS: 93005; 99212 ==